=== PATIENT | female | born 1950 | race Caucasian/White ===

== ENCOUNTER 2020-10-21 08:02 | Outpatient (REF) | payer MEDICARE, SELFPAY ==
[2020-10-21 11:58] LABS: Creatinine Urine 227.57 mg/dL; Microalbum/Creatinine Ratio Ur 5.2 ug/mg cr
[2020-10-21 12:05] LABS: Alanine Aminotransferase 20 U/L (0-31); Albumin Level 4.3 g/dL (3.5-5.0); Alkaline Phosphatase 95 U/L (39-117); Anion Gap 10 (12-20); Aspartate Amino Transferase 21 U/L (5-31); Bilirubin Total 0.7 mg/dL (0.0-1.0); Blood Urea Nitrogen 17 mg/dL (9-16); Calcium 9.2 mg/dL (8.4-10.2); Carbon Dioxide 30 mmol/L (22-29); Chloride 103 mmol/L (96-108); Cholesterol 186 mg/dL; Estimated Glomerular Filt Rate 48; Glucose Fasting 94 mg/dL (60-99); HDL Cholesterol 62 mg/dL; LDL Cholesterol Calculated 100 mg/dl; Potassium 4.1 mmol/L (3.3-5.1); Sodium 139 mmol/L (135-145); Total Protein 7.1 g/dL (6.5-8.0); Triglycerides 121 mg/dL
[2020-10-21 12:18] LABS: TSH reflex Free T4 2.48 uIU/mL (0.32-4.0)
== END 2020-10-21 08:03 | disposition home or self-care (01) ==
LOC: HO.WFDLDS 08:02
PROVIDERS: Visit Provider Family Medicine
DX: Z00.00 Encounter for general adult medical examination without abnormal findings (principal); I10 Essential (primary) hypertension
CPT/HCPCS: 36415; 80053; 80061; 82043; 84443

== ENCOUNTER 2020-12-08 10:36 | Outpatient (REF) | payer MEDICARE, SELFPAY ==
--- NOTE | ~2020-12-08 | MM_ITS ---
EXAMINATION: MM SCREENING DIGITAL BREAST TOMOSYNTHESIS, BILATERAL CLINICAL INFORMATION: Screening. Asymptomatic. The lifetime risk of breast cancer based on the Tyrer-Cuzick Model is 3%. COMPARISON: Outside mammography 12/12/2018, 12/10/2018, 11/28/2017, 11/27/2016, 11/23/2015 ([facility]). TECHNIQUE: Digital breast tomosynthesis is performed in both the craniocaudal and mediolateral oblique views along with computer-aided detection (CAD). Synthesized 2D images are generated from the tomosynthesis. Additional exaggerated right CC and left MLO view are provided. FINDINGS: There are scattered areas of fibroglandular density (ACR BI-RADS breast composition Category b). Parenchymal pattern is similar to prior studies. There is no developing density or interval mass or architectural abnormality. There are scattered bilateral punctate and mildly coarse and vascular calcifications again seen. MM/MM tomosynthesis screening BI IMPRESSION: There are no significant changes from prior study. ASSESSMENT: BI-RADS 2: Benign RECOMMENDATION: Routine annual mammography screening. This patient's information was entered into a reminder system with a target due date for their next mammogram.
--- NOTE | ~2020-12-08 | MM_ITS ---
EXAMINATION: BONE DENSITOMETRY CLINICAL INDICATION: Encounter for screening for osteoporosis. COMPARISON: None (current study represents initial baseline exam). TECHNIQUE: Using a Circa DXA System (software version: 13.1) manufactured by [employer], dual-energy x-ray absorptiometry was performed of the lumbar spine and left hip. The images are of good technical quality. Summary results are attached. FINDINGS: AP SPINE L1-L4: BMD 1.517 g/cm2, Z-score 4.0, T-score 2.8, normal. LEFT FEMUR, NECK: BMD 1.050 g/cm2, Z-score 1.5, T-score 0.1, normal. LEFT FEMUR, TOTAL: BMD 1.259 g/cm2, Z-score 3.2, T-score 2.0, normal. IDENTIFIED RISK FACTORS: Early menopause, secondary osteoporosis, hysterectomy. HISTORY OF FRACTURE: None listed. MEDICATIONS: Vitamin D. MM/XR DEXA axial skeleton IMPRESSION: 1. DIAGNOSIS: Normal bone density based on the lowest T-score value of 0.1 in the femoral neck applying World Health Organization criteria. 2. 10-YEAR FRACTURE RISK PREDICTION, FRAX: Major osteoporotic fracture (clinical spine, forearm, hip or shoulder) 7.0%. Hip fracture 0.4%. 3. Treatment Recommendations: NOF guidelines recommend consideration for treatment in postmenopausal women and men age 50 and older presenting with the following: -A hip or vertebral (clinical or morphometric) fracture. -T-score less than or equal to -2.5 at the femoral neck or spine after appropriate evaluation to exclude secondary causes. -Low bone mass at the hip or spine and a 10-year fracture probability by FRAX of greater than or equal to 3% for hip fracture or greater than or equal to 20% for major osteoporotic fracture based on the [place] adapted WHO algorithm. 4. Other Recommendations: All treatment decisions require clinical judgment and consideration of individual patient factors, including patient preferences, comorbidities, previous drug use, risk factors not captured in the FRAX model (e.g. frailty, falls, vitamin D deficiency, increased bone turnover, interval significant decline in bone density) and possible under or overestimation of fracture risk by FRAX. FUTURE SCAN RECOMMENDATION: People with diagnosed cases of osteoporosis or at high risk for fracture should have regular bone mineral density tests. For patients eligible for Medicare, routine testing is allowed once every 2 years. The testing frequency can be increased to one year for patients who have rapidly progressing disease, those who are receiving or discontinuing medical therapy to restore bone mass, or have additional risk factors.
== END 2020-12-08 10:37 | disposition home or self-care (01) ==
LOC: HO.MAMMO 10:36
PROVIDERS: Visit Provider Family Medicine
DX: Z13.820 Encounter for screening for osteoporosis (principal); Z78.0 Asymptomatic menopausal state; Z12.31 Encounter for screening mammogram for malignant neoplasm of breast
CPT/HCPCS: 77063; 77067; 77080

== ENCOUNTER → 2021-03-11 10:10 | Outpatient (BNVA) | payer MEDICARE, SELFPAY | PROVIDERS: PCP Hospitalist; Referring Provider Hospitalist; Visit Provider Nurse Practitioner | DX: Z85.038 Personal history of other malignant neoplasm of large intestine (principal) | CPT/HCPCS: 99202 ==

== ENCOUNTER 2021-05-16 08:33 | Day surgery (SDC) | payer MEDICARE, SELFPAY ==
--- NOTE | 2021-05-12 14:40 | HO.ANESPROP2 ---
Documented by User: Malu Boateng NP 05/12/21 14:41 HPI - Anesthesia Eval Consult details Narrative: 71yo F for Colonoscopy PMFSH Active Problems Active Problems: All Active Problems (Updated 05/10/21 @ 14:12 by Lia Appiah, RN) High cholesterol (Acute) Vitamin D deficiency (Acute) Chronic GERD (Acute) Hypertension, essential (Acute) Osteoarthritis (arthritis due to wear and tear of joints) (Acute) Encounter for general adult medical examination without abnormal findings (Acute) Breast cancer screening by mammogram (Acute) Screening for colon cancer (Acute) Screening for osteoporosis (Acute) History of colon cancer (Acute) Past Medical History Medical History (Updated 05/10/21 @ 14:12 by Lia Appiah, RN) Colon cancer Elevated cholesterol GERD (gastroesophageal reflux disease) HTN (hypertension) Vitamin D deficiency Surgical History Surgical History (Updated 05/10/21 @ 14:21 by Lia Appiah RN) History of partial colectomy History of partial hysterectomy History of surgical amputation of finger of left hand Hx of colonoscopy Social History Social History Housing: [facility] Patient Tobacco Use Status: Former Tobacco user Tobacco use type: Cigarette e-Cigarette/Vaping Use: Never Used Use of substances other than those prescribed or required for medical reasons: No Are you DNR?: No Advance Directives: No Advance Directives Information Provided: Yes Current occupational status: retired [employer] Allergies Allergy/AdvReac Type Severity Reaction Status Date / Time No Known Allergies Allergy Verified 05/10/21 14:12 Home Medications Medication Instructions Recorded Confirmed Last Taken Type cholecalciferol (vitamin D3) 25 25 mcg PO DAILY 12/24/19 05/10/21 Unknown History mcg (1,000 unit) capsule famotidine 20 mg tablet 20 mg PO DAILY 12/24/19 05/10/21 Unknown History glucosamine sulfate 1,000 mg 1,500 mg PO DAILY cap 12/24/19 05/10/21 Unknown History capsule turmeric root extract 500 mg 1,500 mg PO DAILY cap 12/24/19 05/10/21 Unknown History capsule aspirin 81 mg tablet,delayed 81 mg PO DAILY 10/18/20 05/10/21 Unknown History release (Adult Aspirin Regimen) Exam Exam Date and Time: May 12, 2021 1440 Pertinent Lab Results Pertinent Lab Results: Laboratory Tests 10/21/20 08:10 Sodium 139 Potassium 4.1 Chloride 103 Carbon Dioxide 30 H BUN 17 H Creatinine 1.11 Assessment and Plan Assessment Anesthesia Assessment: Chart Reviewed Documented by User: Mirian Sheriff MD 05/16/21 09:43 [facility] Past Medical History Medical History (Updated 05/10/21 @ 14:12 by Lia Appiah RN) Colon cancer Elevated cholesterol GERD (gastroesophageal reflux disease) HTN (hypertension) Vitamin D deficiency Family History Family history of problems with anesthesia: No Surgical History Surgical History (Updated 05/10/21 @ 14:21 by Lia Appiah RN) History of partial colectomy History of partial hysterectomy History of surgical amputation of finger of left hand Hx of colonoscopy History of Problems with Anesthesia: No Social History [facility] History [facility] Patient Tobacco Use Status: Former Tobacco user Tobacco use type: Cigarette e-Cigarette/Vaping Use: Never Used Use of substances other than those prescribed or required for medical reasons: No Are you DNR?: No Advance Directives: No Advance Directives Information Provided: Yes Current occupational status: retired Meds Allergies Allergy/AdvReac Type Severity Reaction Status Date / Time No Known Allergies Allergy Verified 05/10/21 14:12 Home Medications Medication Instructions Recorded Confirmed Last Taken Type cholecalciferol (vitamin D3) 25 25 mcg PO DAILY 12/24/19 05/10/21 Unknown History mcg (1,000 unit) capsule famotidine 20 mg tablet 20 mg PO DAILY 12/24/19 05/10/21 Unknown History glucosamine sulfate 1,000 mg 1,500 mg PO DAILY cap 12/24/19 05/10/21 Unknown History capsule turmeric root extract 500 mg 1,500 mg PO DAILY cap 12/24/19 05/10/21 Unknown History capsule aspirin 81 mg tablet,delayed 81 mg PO DAILY 10/18/20 05/10/21 Unknown History release (Adult Aspirin Regimen) Exam Airway Mallampati Class: II TM Dist: >3cm Neck ROM: Full Partial: Lower Heart: rrr Lungs: cta Assessment and Plan Assessment Anesthesia Assessment: Anesthesia Plan Discussed and Chart Reviewed Final Anesthetic Review Family History of Problems with Anesthesia: No History of Problems with Anesthesia: No NPO: Yes ASA Class: II Final Preanesthetic Review: No Changes in Pt Med Stat, Meds/Allgs Chart Reviewed and Consent Obtained/Reviewed Patient Risk: Intermediate Procedure Risk: Intermediate Anesthetic Plan Anesthetic Plan: MAC: Disposition: Standard PACU
--- NOTE | 2021-05-16 09:17 | MHC.SHP ---
Pre-Procedural Eval Section A Date of Service: 05/16/21 The patient is an INPATIENT: No The History & Physical has been completed within 30 days and I have reviewed it.: No Section B Chief Complaint: screening Details of Present Illness: colon cancer screening, hx of colon cancer Relevant Family History (Specify if Yes): No Relevant Social History: Tobacco Use (past smoker) Present Medications: see Short Stay Collaborative assessment Medical History: Significant History (hx of colon cancer, GERD, htn, HLD, OA) History of Previous Operations: Relevant previous surgery/procedure and date(s) (History of partial colectomy History of partial hysterectomy History of surgical amputation of finger of left hand) Allergies: Allergies Allergy/AdvReac Type Severity Reaction Status Date / Time No Known Allergies Allergy Verified 05/10/21 14:12 Review of Systems Sugical H&P ROS: Negative: Constitution, Cardiovascular, Respiratory and Gastrointestinal Exam Surgical H&P Exam: Normal: Heart, Normal: Lungs, Normal: Extremities and Normal: Abdomen Plan Diagnosis/Plan: Unchanged I have reviewed the history and physical and performed a pertinent physical examination on my patient. No changes have occurred unless specified.
--- NOTE | 2021-05-16 09:19 | W.PM.OPN ---
Operative Note Operative Note Date of Service: 05/16/21 Narrative: Pre-op diagnosis: Colon cancer screening, history of colon polyps, patient is status post right hemicolectomy for colon cancer in 2011 Post-op diagnosis:?other (Multiple colon polyps, diverticulosis) Procedure: COLONOSCOPY TILL CECUM WITH SNARE POLYPECTOMY, SUBMUCOSAL INJECTION AND HEMOCLIP PLACEMENT Consent: Indications for the procedure and potential complications of bleeding, perforation, reaction to medications and missed diagnosis were discussed with the patient and informed consent was obtained. Instrument: Olympus PCF H 190 L variable stiffness pediatric colonoscope Monitoring: Vital signs and clinical assessment, intermittent blood pressure monitoring, continuous EKG monitoring, Pulse oximetry and Carbon Dioxide monitoring were done throughout the procedure. Colon withdrawl time was 40 minutes. Procedure: The patient was placed in the left lateral decubitis position and pre-procedure medications were administered. After a digital rectal examination of the ano-rectum, the video colonoscope was inserted into the rectum and advanced through the colon to the cecum. The colonoscope was slowly withdrawn in a retrograde panoramic fashion and the colon mucosa was carefully examined including a retroflexed view of the rectum. Findings and interventions are described below. Procedure Difficulty: Without difficulty Findings: Silverio-terminal Ileum: Normal Normal Anastomosis seen at 70 cms Transverse Colon:? A 2 cms elongated polyp at 65 cms just proximal to the anastomosis - raised with 2 cc of Orise solution and removed piecemeal with a hot snare.? Polypectomy site was closed with a hemoclip and marked with Mylene ink. Eight additional 1 to 2 cms sessile/flat polyps removed with a hot snare A few additional polyps in the left colon not removed due to excessive length of the procedure, Descending Colon:? Normal Sigmoid Colon:? Moderate diverticulosis Rectum:? Normal Ano-rectum:? Moderate internal hemorrhoids Colon preparation: ? Fair with undigested seeds and fibre despite copious irrigation Impression and Post Procedure Diagnosis: Colonoscopy Findings: Nine medium to large sized polyps removed A few additional polyps in the left colon not removed due to excessive length of the procedure, Moderate diverticulosis seen in the sigmoid colon Plan: Await pathology results Patient has an appointment on 06/02/21 in the GI Clinic with? Susi Ramirez NP. Pt needs genetic testing given hx of colon cancer and multiple flat polyps > 10 in the colon. Pt denies having genetic testing done in the past.? Her last colon was ? 5 yrs ago. Repeat Colonoscopy in 6 months due to fair prep and multiple polyps (recommend Miralax and Bisacodyl prep for future colonoscopies). Above findings were reviewed with the patient and colon polyps handout was given in the discharge area Surgeon: Petr Alarcon MD Anesthesia:?MAC (Dr Smith) Was an Multi Operation Machine Operator used for this Procedure?:?Yes Multi Operation Machine Operator:?Nola Blake Estimated blood loss (mL):?0 Pathology:?other (A. transverse colon polyps (several)? B. polyp at 65 cm with Orise) Condition:?stable Disposition:?PACU
[2021-05-16 09:22] VITALS: BMI 30.5
[2021-05-16 09:28] VITALS: BP 182/97; PULSE 73; RESP 17; TEMP 36.2; O2SAT 99
[2021-05-16 09:29] VITALS: BP 169/83
[2021-05-16] MEDS: Lactated Ringers 1,000 ML 100 ML IVCONT (09:39)
[2021-05-16 10:46] VITALS: BP 179/66; PULSE 73; RESP 16; TEMP 36.6; O2SAT 99
[2021-05-16 11:01] VITALS: BP 157/75; PULSE 71; RESP 16; TEMP 36.6; O2SAT 99
== END 2021-05-16 11:56 | disposition home or self-care (01) ==
PROVIDERS: PCP Hospitalist; Visit Provider Internal Medicine Gastroenterology
PROC: 0DJD8ZZ Inspection of Lower Intestinal Tract, Via Natural or Artificial Opening Endoscopic (ICD-10-PCS; CPT 45378; principal; 2021-05-16 10:00)
DX: Z12.11 Encounter for screening for malignant neoplasm of colon (principal); K63.5 Polyp of colon; K57.30 Diverticulosis of large intestine without perforation or abscess without bleeding; K64.8 Other hemorrhoids; I10 Essential (primary) hypertension; E78.5 Hyperlipidemia, unspecified; K21.9 Gastro-esophageal reflux disease without esophagitis; Z85.038 Personal history of other malignant neoplasm of large intestine; Z98.0 Intestinal bypass and anastomosis status
CPT/HCPCS: 45385; 45381; 88305

== ENCOUNTER → 2021-06-02 11:22 | Outpatient (BNVA) | payer MEDICARE, SELFPAY | PROVIDERS: PCP Hospitalist; Referring Provider Hospitalist; Visit Provider Nurse Practitioner | DX: Z85.038 Personal history of other malignant neoplasm of large intestine (principal); K63.5 Polyp of colon; Z98.890 Other specified postprocedural states | CPT/HCPCS: 99212 ==

== ENCOUNTER → 2021-09-29 08:48 | Outpatient (BNVA) | payer MEDICARE, SELFPAY | PROVIDERS: PCP Hospitalist; Visit Provider Nurse Practitioner | DX: Z01.818 Encounter for other preprocedural examination (principal); K21.9 Gastro-esophageal reflux disease without esophagitis; Z85.038 Personal history of other malignant neoplasm of large intestine; Z86.010 Personal history of colon polyps | CPT/HCPCS: 99212 ==

== ENCOUNTER 2021-10-28 07:36 | Outpatient (REF) | payer MEDICARE, SELFPAY ==
[2021-10-28 11:12] LABS: MANUAL DIFF FLAG NO
[2021-10-28 11:15] LABS: Basophils Absolute Auto 0.1 X10*3/uL (0.0-0.2); Basophils Percent Auto 0.7 % (0-2); Eosinophils Absolute Auto 0.2 X10*3/uL (0.0-0.4); Eosinophils Percent Auto 2.3 % (0-4); Hematocrit 45.4 % (37.0-47.0); Hemoglobin 14.7 g/dl (12.0-16.0); Imm Gran Abs Auto 0.02 X10*3/uL (0.00-0.03); Imm Gran Pct Auto 0.3 % (0.0-0.4); Lymphocytes Absolute Auto 2.3 X10*3/uL (1.2-4.9); Lymphocytes Percent Auto 33.6 % (20-40); Mean Corpuscular HGB Conc 32.4 g/dl (31.0-35.0); Mean Corpuscular Hemoglobin 30.7 pg (27.0-33.0); Mean Corpuscular Volume 94.8 fL (80.0-98.0); Mean Platelet Volume 10.2 fL (9.4-12.3); Monocytes Absolute Auto 0.7 X10*3/uL (0.1-1.2); Neutrophils Absolute Auto 3.7 x10*3/uL (2.0-8.3); Neutrophils Percent Auto 53.1 % (45-73); Platelet Count 249 X10*3/uL (160-400); Red Blood Count 4.79 X10*6/uL (4.20-5.50); Red Cell Distribution Width 12.5 % (11.0-16.0); White Blood Count 6.9 X10*3/uL (4.8-10.8)
[2021-10-28 11:27] LABS: Alanine Aminotransferase 29 U/L (0-31); Albumin Level 4.4 g/dL (3.5-5.0); Alkaline Phosphatase 102 U/L (39-117); Anion Gap 15 (12-20); Aspartate Amino Transferase 27 U/L (5-31); Bilirubin Total 0.5 mg/dL (0.0-1.0); Blood Urea Nitrogen 20 mg/dL (9-16); Calcium 9.4 mg/dL (8.4-10.2); Carbon Dioxide 27 mmol/L (22-29); Chloride 102 mmol/L (96-108); Estimated Glomerular Filt Rate 48; Glucose Random 93 mg/dL (60-115); Potassium 4.4 mmol/L (3.3-5.1); Sodium 140 mmol/L (135-145); Total Protein 7.3 g/dL (6.5-8.0)
== END 2021-10-28 07:37 | disposition home or self-care (01) ==
LOC: HO.WFDLDS 07:36
PROVIDERS: Visit Provider Nurse Practitioner
DX: D12.6 Benign neoplasm of colon, unspecified (principal)
CPT/HCPCS: 36415; 80053; 85025

== ENCOUNTER 2021-12-09 11:31 | Outpatient (REF) | payer MEDICARE, SELFPAY ==
--- NOTE | ~2021-12-09 | MM_ITS ---
EXAMINATION: MM SCREENING DIGITAL BREAST TOMOSYNTHESIS, BILATERAL CLINICAL INFORMATION: Screening. Asymptomatic. Family history breast cancer, sister. COMPARISON: Mammography: 12/08/2020; outside mammography 12/10/2018, 11/28/2017 ([facility], [place]). TECHNIQUE: Digital breast tomosynthesis is performed in both the craniocaudal and mediolateral oblique views along with computer-aided detection (CAD). Synthesized 2D images are generated from the tomosynthesis. FINDINGS: There are scattered areas of fibroglandular density (ACR BI-RADS breast composition Category b). There are no significant masses, abnormal calcifications, or other abnormalities. Parenchymal pattern is similar to prior studies. There is no developing density or architectural abnormality. The axilla and skin contours are unremarkable. No significant changes. MM/MM tomosynthesis screening BI IMPRESSION: No mammographic evidence of malignancy. ASSESSMENT: BI-RADS 1: Negative RECOMMENDATION: Routine annual mammography screening. This patient's information was entered into a reminder system with a target due date for their next mammogram.
== END 2021-12-09 11:32 | disposition home or self-care (01) ==
LOC: HO.MAMMO 11:31
PROVIDERS: PCP Hospitalist; Visit Provider Hospitalist
DX: Z12.31 Encounter for screening mammogram for malignant neoplasm of breast (principal)
CPT/HCPCS: 77063; 77067

== ENCOUNTER 2022-03-06 08:12 | Day surgery (SDC) | payer MEDICARE, SELFPAY ==
[2022-02-27 15:25] VITALS: BMI 30.9
--- NOTE | 2022-03-03 11:53 | P.CONAN_ITS ---
Documented by User: Malu Boateng NP 03/03/22 11:55 HPI - Anesthesia Eval Consult details Narrative: 72yo F for Colonoscopy s/p [place] 05/2021 with MAC PMFSH Active Problems Active Problems: All Active Problems (Updated 11/10/21 @ 08:37 by Natalia Aquino NP) Facial lesion (Acute) Normal physical exam (Acute) Serrated polyposis syndrome (Acute) High cholesterol (Acute) Vitamin D deficiency (Acute) Chronic GERD (Acute) Hypertension, essential (Acute) Osteoarthritis (arthritis due to wear and tear of joints) (Acute) Encounter for general adult medical examination without abnormal findings (Acute) Breast cancer screening by mammogram (Acute) Screening for colon cancer (Acute) Screening for osteoporosis (Acute) History of colon cancer (Acute) Past Medical History Medical History Colon cancer Elevated cholesterol GERD (gastroesophageal reflux disease) HTN (hypertension) Multiple polyps of sigmoid colon Vitamin D deficiency Family History Family history of problems with anesthesia: No Surgical History Surgical History History of partial colectomy History of partial hysterectomy History of surgical amputation of finger of left hand Hx of colonoscopy History of Problems with Anesthesia: No Social History [facility] Are you a primary career discovery teacher to a significant other at home: No Do you presently have visiting nurse or other home services: No Patient Tobacco Use Status: Former Tobacco user Quit Date: Tobacco use type: Cigarette e-Cigarette/Vaping Use: Never Used Use of substances other than those prescribed or required for medical reasons: No Have you been hit, kicked, punched, or otherwise hurt by someone within the past year? If so, by whom?: No Are you DNR?: No Advance Directives: No (will bring dos) Advance Directives Information Provided: Yes Advance Directives on File: No Recently lost weight without trying: No Nutrition Risks: No Nutritional Risk Poor oral hygiene: No (partial lower) Current occupational status: retired Meds Allergies Allergy/AdvReac Type Severity Reaction Status Date / Time No Known Allergies Allergy Verified 02/27/22 15:28 Home Medications Medication Instructions Recorded Confirmed Last Taken Type famotidine 20 mg tablet 20 mg PO DAILY PRN Acid Reflux 12/24/19 02/27/22 03/01/22 History glucosamine sulfate 1,000 mg 1,500 mg PO DAILY 12/24/19 02/27/22 03/01/22 History capsule turmeric root extract 500 mg 1,500 mg PO DAILY 12/24/19 03/06/22 03/01/22 History capsule aspirin 81 mg tablet,delayed 81 mg PO DAILY 11/10/21 02/27/22 03/01/22 History release (Adult Aspirin Regimen) Exam Exam Date and Time: March 03, 2022 1153 Height,Weight and Vital Signs: Height 5 ft 4 in Weight 81.647 kg Pertinent Lab Results Pertinent Lab Results: Laboratory Tests 10/28/21 10/28/21 07:45 07:45 WBC 6.9 Hgb 14.7 Hct 45.4 Plt Count 249 Sodium 140 Potassium 4.4 Chloride 102 Carbon Dioxide 27 BUN 20 H Creatinine 1.12 Assessment and Plan Assessment Anesthesia Assessment: Chart Reviewed Final Anesthetic Review Family History of Problems with Anesthesia: No History of Problems with Anesthesia: No Documented by User: Dara Norwood MD 03/06/22 09:04 HPI - Anesthesia Eval Consult details Narrative: 72yo F for Colonoscopy history of colon cancer s/post resection s/p [place] 05/2021 with MAC per pt report last colonoscopy not complete due to inadequate prep PMFSH Past Medical History Medical History Colon cancer Elevated cholesterol GERD (gastroesophageal reflux disease) HTN (hypertension) Multiple polyps of sigmoid colon Vitamin D deficiency Surgical History Surgical History History of partial colectomy History of partial hysterectomy History of surgical amputation of finger of left hand Hx of colonoscopy Social History Social History (Reviewed 09/29/21 @ 08:59 by CHATO Willett [facility] Are you a primary career discovery teacher to a significant other at home: No Do you presently have visiting nurse or other home services: No Patient Tobacco Use Status: Former Tobacco user Quit Date: Tobacco use type: Cigarette e-Cigarette/Vaping Use: Never Used Use of substances other than those prescribed or required for medical reasons: No Have you been hit, kicked, punched, or otherwise hurt by someone within the past year? If so, by whom?: No Are you DNR?: No Advance Directives: No (will bring dos) Advance Directives Information Provided: Yes Advance Directives on File: No Recently lost weight without trying: No Nutrition Risks: No Nutritional Risk Poor oral hygiene: No (partial lower) Current occupational status: retired [employer] Allergies Allergy/AdvReac Type Severity Reaction Status Date / Time No Known Allergies Allergy Verified 02/27/22 15:28 Home Medications Medication Instructions Recorded Confirmed Last Taken Type famotidine 20 mg tablet 20 mg PO DAILY PRN Acid Reflux 12/24/19 02/27/22 03/01/22 History glucosamine sulfate 1,000 mg 1,500 mg PO DAILY 12/24/19 02/27/22 03/01/22 History capsule turmeric root extract 500 mg 1,500 mg PO DAILY 12/24/19 03/06/22 03/01/22 History capsule aspirin 81 mg tablet,delayed 81 mg PO DAILY 11/10/21 02/27/22 03/01/22 History release (Adult Aspirin Regimen) Exam Airway Mallampati Class: II TM Dist: >3cm Neck ROM: Full Heart: rrr Lungs: cta Assessment and Plan Assessment Anesthesia Assessment: Anesthesia Plan Discussed Final Anesthetic Review NPO: Yes ASA Class: III Final Preanesthetic Review: No Changes in Pt Med Stat, Meds/Allgs Chart Reviewed, Consent Obtained/Reviewed and Anes Risks/Benef Reviewed Patient Risk: Low Procedure Risk: Low Anesthetic Plan Anesthetic Plan: MAC: and Agree w/ Assess. and Plan Disposition: Standard PACU
--- NOTE | 2022-03-06 07:56 | MHC.SHP ---
Pre-Procedural Eval Section A Date of Service: 03/06/22 The patient is an INPATIENT: No The History & Physical has been completed within 30 days and I have reviewed it.: No Section B Chief Complaint: screening, hx of colon ca and familial polyposis Details of Present Illness: Screening, personal history of colon cancer Relevant Social History: Tobacco Use (former smoker) Present Medications: see Short Stay Collaborative assessment Medical History: Significant History (Colon cancer Elevated cholesterol GERD (gastroesophageal reflux disease) HTN (hypertension) Multiple polyps of sigmoid colon Vitamin D deficiency) History of Previous Operations: Relevant previous surgery/procedure and date(s) (History of partial colectomy History of partial hysterectomy History of surgical amputation of finger of left hand Hx of colonoscopy) Allergies: Allergies Allergy/AdvReac Type Severity Reaction Status Date / Time No Known Allergies Allergy Verified 02/27/22 15:28 Review of Systems Sugical H&P ROS: Negative: Constitution, Cardiovascular, Respiratory and Gastrointestinal Exam Surgical H&P Exam: Normal: Heart, Normal: Lungs, Normal: Extremities and Normal: Abdomen Plan Diagnosis/Plan: Unchanged I have reviewed the history and physical and performed a pertinent physical examination on my patient. No changes have occurred unless specified. Time Spent With Patient Time: Total time managing care of this patient today ____ minutes.
[2022-03-06 08:35] VITALS: BP 171/83; PULSE 77; RESP 20; TEMP 36.6; O2SAT 97
--- NOTE | 2022-03-06 08:42 | P.BOP_ITS ---
Brief Operative Note Date of Service: 03/06/22 Pre-op diagnosis: Colon cancer screening, serrated polyposis syndrome, history of multiple colon polyps Post-op diagnosis: other (Colon polyps, diverticulosis, hemorrhoids) Procedure: COLONOSCOPY TO ANASTOMOSIS WITH SNARE POLYPECTOMY, SUBMUCOSAL INJECTION AND HEMOCLIP PLACEMENT Surgeon: Petr Alarcon MD Anesthesia: MAC Was an Credit Portfolio Manager used for this Procedure?: Yes Credit Portfolio Manager: Nola Blake Estimated blood loss (mL): 0 Pathology: other (A. descending colon polyps @ 50 cms with Eleview (2) B. polyp @ 65 cms C. transverse colon polyp with [place] D. nodule transverse colon bxs @ 80 cms, R/O lipoma E. descending colon polyp @ 65 cms wit) Condition: stable Disposition: PACU
--- NOTE | 2022-03-06 08:42 | W.PM.OPN ---
Operative Note Operative Note Date of Service: 03/06/22 Narrative: Pre-op diagnosis: Colon cancer screening, serrated polyposis syndrome, history of multiple colon polyps Post-op diagnosis:?other (Colon polyps, diverticulosis, hemorrhoids) Surgeon: Petr Alarcon MD Anesthesia:?MAC COLONOSCOPY TILL CECUM WITH SNARE POLYPECTOMY, SUBMUCOSAL INJECTION AND HEMOCLIP PLACEMENT Consent: Indications for the procedure and potential complications of bleeding, perforation, reaction to medications and missed diagnosis were discussed with the patient and informed consent was obtained. Instrument: Olympus PCF H 190 L variable stiffness pediatric colonoscope Monitoring: Vital signs and clinical assessment, intermittent blood pressure monitoring, continuous EKG monitoring, Pulse oximetry and Carbon Dioxide monitoring were done throughout the procedure. Colon withdrawl time was 49 minutes. Procedure: The patient was placed in the left lateral decubitis position and pre-procedure medications were administered. After a digital rectal examination of the ano-rectum, the video colonoscope was inserted into the rectum and advanced through the colon to the ileo-colic anastomosis at 70 cms. The colonoscope was slowly withdrawn in a retrograde panoramic fashion and the colon mucosa was carefully examined including a retroflexed view of the rectum. Findings and interventions are described below. Procedure Difficulty: Without difficulty Findings: Transverse Colon: A 10 - 12 mm polyp at polypectomy site at 65 cms - removed with a hot snare. A 2 cms flat polyp at 80 cms raised with 5 cc of Eleview and removed with a hot snare. A 5 cms smooth yellowish benign appearing nodule at 80 cms - biopsied. Descending Colon: A 2.5 cms flat polyp at 65 cms raised with 5 cc of Eleview and removed piece meal with a hot snare. Polypectomy sites was closed with hemoclips x2 and marked with Mylene ink. Two 2 to 2.5 cms flat polyp at 50 cms raised with 3 cc of normal saline and removed with a hot snare. Sigmoid Colon: A 3 cms flat polyp at 40 cms raised with 5 cc of Eleview and removed piecemeal with a hot snare. Polypectomy site was closed with the hemoclips x2 and marked with Mylene ink. A 12 to 15 mm sessile polyp at 20 cms - removed with a hot snare. Moderate diverticulosis Rectum: Normal Ano-rectum: Moderate internal hemorrhoids Colon preparation: Good after some irrigation Impression and Post Procedure Diagnosis: Colonoscopy Findings: Seven medium to large sized polyps removed A 5 cms smooth yellowish benign appearing nodule at 80 cms (likely a submucosal lipoma) - biopsied. Moderate diverticulosis seen in the left colon Moderate hemorrhoids on retroflexed exam. Plan: Await pathology results Patient has an appointment on 03/21/22 in the GI [facility] with Susi Ramirez NP. Repeat Colonoscopy interval based on path results - in 6 to 12 months. Since pt has multiple flat polyps, option of surgical evaluation for a sub-total colectomy (followed by surveillance of rectal stump by a flex sigmoidoscopy) was discussed with the patient. She will think it over and inform Susi Ramirez NP of her decision when she returns for her FU appt. Above findings were reviewed with the patient and colon polyps handout was given in the discharge area
[2022-03-06] MEDS: Lactated Ringers 1,000 ML 100 ML IVCONT (08:52)
[2022-03-06 11:06] VITALS: BP 124/64; PULSE 79; RESP 16; TEMP 36.8; O2SAT 94
[2022-03-06 11:21] VITALS: BP 168/99; PULSE 70; RESP 16; TEMP 36.9; O2SAT 96
== END 2022-03-06 12:12 ==
LOC: HO.SSS 08:13
PROVIDERS: PCP Hospitalist; Visit Provider Internal Medicine Gastroenterology
PROC: 0DJD8ZZ Inspection of Lower Intestinal Tract, Via Natural or Artificial Opening Endoscopic (ICD-10-PCS; CPT 45378; principal; 2022-03-06 08:30)
DX: Z12.11 Encounter for screening for malignant neoplasm of colon (principal); D12.6 Benign neoplasm of colon, unspecified; K57.30 Diverticulosis of large intestine without perforation or abscess without bleeding; K64.8 Other hemorrhoids
CPT/HCPCS: 45385; 45381; 88305

== ENCOUNTER → 2022-03-29 08:46 | Outpatient (BNVA) | payer MEDICARE, SELFPAY | PROVIDERS: PCP Hospitalist; Visit Provider Nurse Practitioner | DX: D12.3 Benign neoplasm of transverse colon (principal); D12.4 Benign neoplasm of descending colon; D12.5 Benign neoplasm of sigmoid colon; Z98.890 Other specified postprocedural states | CPT/HCPCS: 99212 ==

== ENCOUNTER 2022-04-03 08:07 | Outpatient (REF) | payer MEDICARE, SELFPAY ==
[2022-04-03 12:29] LABS: Anion Gap 11 (12-20); Blood Urea Nitrogen 14 mg/dL (9-16); Carbon Dioxide 29 mmol/L (22-29); Chloride 105 mmol/L (96-108); Cholesterol 169 mg/dL; Estimated Glomerular Filt Rate 55; Glucose Fasting 85 mg/dL (60-99); HDL Cholesterol 63 mg/dL; LDL Cholesterol Calculated 90 mg/dl; Potassium 4.1 mmol/L (3.3-5.1); Sodium 141 mmol/L (135-145); Triglycerides 84 mg/dL
== END 2022-04-03 08:08 | disposition home or self-care (01) ==
LOC: HO.WFDLDS 08:07
PROVIDERS: Visit Provider Hospitalist
DX: R94.4 Abnormal results of kidney function studies (principal); E78.00 Pure hypercholesterolemia, unspecified
CPT/HCPCS: 36415; 80048; 80061

== ENCOUNTER 2022-08-14 06:21 | Day surgery (SDC) | payer MEDICARE, SELFPAY ==
--- NOTE | 2022-08-11 12:10 | HO.ANESPROP2 ---
HPI - Anesthesia Eval Consult details Narrative: 72yo F for Colonoscopy PMFSH Active Problems Active Problems: All Active Problems (Updated 03/28/22 @ 08:49 by Natalia Aquino NP) Decreased GFR (Acute) Facial lesion (Acute) Normal physical exam (Acute) Serrated polyposis syndrome (Acute) High cholesterol (Acute) Vitamin D deficiency (Acute) Chronic GERD (Acute) Hypertension, essential (Acute) Osteoarthritis (arthritis due to wear and tear of joints) (Acute) Encounter for general adult medical examination without abnormal findings (Acute) Breast cancer screening by mammogram (Acute) Screening for colon cancer (Acute) Screening for osteoporosis (Acute) History of colon cancer (Acute) Past Medical History Medical History Colon cancer Elevated cholesterol GERD (gastroesophageal reflux disease) HTN (hypertension) Multiple polyps of sigmoid colon Vitamin D deficiency Family History Family history of problems with anesthesia: No Surgical History Surgical History History of partial colectomy History of partial hysterectomy History of surgical amputation of finger of left hand Hx of colonoscopy History of Problems with Anesthesia: No Social History [facility] Are you a primary rn patient care to a significant other at home: No Do you presently have visiting nurse or other home services: No Patient Tobacco Use Status: Former Tobacco user Quit Date: Tobacco use type: Cigarette e-Cigarette/Vaping Use: Never Used Current occupational status: retired [employer] Allergies Allergy/AdvReac Type Severity Reaction Status Date / Time No Known Allergies Allergy Verified 03/29/22 09:03 Home Medications Medication Instructions Recorded Confirmed Last Taken Type famotidine 20 mg tablet 20 mg PO DAILY PRN Acid Reflux 12/24/19 02/27/22 03/01/22 History glucosamine sulfate 1,000 mg 1,500 mg PO DAILY 12/24/19 02/27/22 03/01/22 History capsule turmeric root extract 500 mg 1,500 mg PO DAILY 12/24/19 03/06/22 03/01/22 History capsule aspirin 81 mg tablet,delayed 81 mg PO DAILY 11/10/21 02/27/22 03/01/22 History release (Adult Aspirin Regimen) Exam Exam Date and Time: August 11, 2022 1210 Pertinent Lab Results Pertinent Lab Results: Laboratory Tests 10/28/21 04/03/22 07:45 08:10 WBC 6.9 Hgb 14.7 Hct 45.4 Plt Count 249 Sodium 141 Potassium 4.1 Chloride 105 Carbon Dioxide 29 BUN 14 Creatinine 0.98 Assessment and Plan Assessment Anesthesia Assessment: Chart Reviewed Final Anesthetic Review Family History of Problems with Anesthesia: No History of Problems with Anesthesia: No
[2022-08-14 06:51] VITALS: BMI 30.6
[2022-08-14 06:57] VITALS: BP 155/74; PULSE 74; RESP 15; TEMP 36.2; O2SAT 97
--- NOTE | 2022-08-14 07:42 | MHC.SHP ---
Pre-Procedural Eval Section A Date of Service: 08/14/22 The patient is an INPATIENT: No The History & Physical has been completed within 30 days and I have reviewed it.: No Section B Chief Complaint: Benign neoplasm of colon, Relevant Family History (Specify if Yes): No Relevant Social History: Tobacco Use (Former smoker) Present Medications: see Short Stay Collaborative assessment Medical History: Significant History (Colon cancer Elevated cholesterol GERD (gastroesophageal reflux disease) HTN (hypertension) Multiple polyps of sigmoid colon) History of Previous Operations: Relevant previous surgery/procedure and date(s) (History of partial colectomy History of partial hysterectomy History of surgical amputation of finger of left hand Hx of colonoscopy) Allergies: Allergies Allergy/AdvReac Type Severity Reaction Status Date / Time No Known Allergies Allergy Verified 08/14/22 06:50 Review of Systems Sugical H&P ROS: Negative: Constitution, Cardiovascular, Respiratory and Gastrointestinal Exam Surgical H&P Exam: Normal: Heart, Normal: Lungs, Normal: Extremities and Normal: Abdomen Plan Diagnosis/Plan: Unchanged I have reviewed the history and physical and performed a pertinent physical examination on my patient. No changes have occurred unless specified. Time Spent With Patient Time: Total time managing care of this patient today ____ minutes.
--- NOTE | 2022-08-14 08:35 | W.PM.OPN ---
Operative Note Operative Note Date of Service: 08/14/22 Narrative: COLONOSCOPY TILL ILEO-COLIC ANASTOMOSIS WITH SNARE POLYPECTOMY, SUBMUCOSAL INJECTION AND HEMOCLIP PLACEMENT Pre-op diagnosis: Colon cancer screening, follow-up of multiple colon polyps Post-op diagnosis:? Colon polyps, diverticulosis, hemorrhoids Endoscopist:? Petr Alarcon MD Anesthesia:?MAC Consent: Indications for the procedure and potential complications of bleeding, perforation, reaction to medications and missed diagnosis were discussed with the patient and informed consent was obtained. Instrument: Olympus PCF H 190 L variable stiffness pediatric colonoscope Monitoring: Vital signs and clinical assessment, intermittent blood pressure monitoring, continuous EKG monitoring, Pulse oximetry and Carbon Dioxide monitoring were done throughout the procedure. Please see anesthesia flowsheet. Colon withdrawl time was 35 minutes. Procedure: The patient was placed in the left lateral decubitis position and pre-procedure medications were administered. After a digital rectal examination of the ano-rectum, the video colonoscope was inserted into the rectum and advanced through the colon to ileo-colic anastomosis at 80 cms. The colonoscope was slowly withdrawn in a retrograde panoramic fashion and the colon mucosa was carefully examined including a retroflexed view of the rectum. Findings and interventions are described below. Procedure Difficulty: Without difficulty Findings: Terminal Ileum: Silverio-terminal ileum was normal Ileo-colic anastomosis: Two 1.8 to 2 cms flat polyps near anastomotic site. Polyps were raised with 5 cc of normal saline and removed with hot snare. The larger polypectomy site was closed with 2 hemoclips. Transverse Colon: A 5 cms smooth yellowish benign appearing nodule at 80 cms - submucosal lipoma on biopsies obtained during last colonoscopy. A 15 mm sessile polyp removed with a hot snare Descending Colon: Two 3-4 mm benign appearing nodules at biopsy site at 65 cms - removed with a cold biopsy Sigmoid Colon: A 10-12 mm sessile polyp -removed with a hot snare. Moderate diverticulosis Rectum: Two 4-5 mm diminutive appearing polyps - removed with a cold biopsy Ano-rectum: Moderate internal hemorrhoids Colon preparation: Good after some irrigation Impression and Post Procedure Diagnosis: Colonoscopy Findings: Six medium sized polyps removed Two 3-4 mm benign appearing nodules at biopsy site at 65 cms - removed with a cold biopsy Moderate diverticulosis seen in the sigmoid colon Moderate hemorrhoids on retroflexed exam. Plan: Await pathology results Patient to schedule a FU appointment with Susi Ramirez NP. Repeat Colonoscopy interval based on path results - in 6 to 12 months if polyps are adenomatous and due to a history of serrated polypoosis syndrome. (pt is still undecided regarding colon surgery) Above findings were reviewed with the patient and colon polyps handout was given in the discharge area BIOPSIES SHOWED: A.? Colon, at anastomosis at 70 cm, 2 polyps:? Sessile serrated lesion/polyp without dysplasia, and hyperplastic polyp. B.? Colon, transverse, polyp:? Consistent with hyperplastic polyp. C.? Colon, polypectomy site at 45 cm, biopsy:? Colonic mucosa with minor crypt distortion; negative for adenomatous dysplasia. D.? Colon, sigmoid, polyp:? Tubular adenoma; negative for high-grade dysplasia and carcinoma.? E.? Colon, rectal polyp:? Polypoid colonic mucosa with minimal hyperplastic changes; negative for adenomatous dysplasia.?
== END 2022-08-14 10:31 | disposition home or self-care (01) ==
LOC: HO.SSS 06:22
PROVIDERS: PCP Hospitalist; Visit Provider Internal Medicine Gastroenterology
PROC: 0DJD8ZZ Inspection of Lower Intestinal Tract, Via Natural or Artificial Opening Endoscopic (ICD-10-PCS; CPT 45378; principal; 2022-08-14 08:30)
DX: Z12.11 Encounter for screening for malignant neoplasm of colon (principal); Z86.010 Personal history of colon polyps; Z85.038 Personal history of other malignant neoplasm of large intestine; D12.4 Benign neoplasm of descending colon; D12.5 Benign neoplasm of sigmoid colon; K63.5 Polyp of colon; K62.1 Rectal polyp; K57.30 Diverticulosis of large intestine without perforation or abscess without bleeding; K64.8 Other hemorrhoids; Z90.49 Acquired absence of other specified parts of digestive tract; K21.9 Gastro-esophageal reflux disease without esophagitis; I10 Essential (primary) hypertension; E78.00 Pure hypercholesterolemia, unspecified; E55.9 Vitamin D deficiency, unspecified; Z79.82 Long term (current) use of aspirin; Z79.899 Other long term (current) drug therapy; Z87.891 Personal history of nicotine dependence
CPT/HCPCS: 45385; 45380; 45381; 88305

== ENCOUNTER → 2022-08-14 06:21 | Outpatient (BNV) | payer MEDICARE, SELFPAY | PROVIDERS: PCP Hospitalist; Visit Provider Internal Medicine Gastroenterology | DX: Z12.11 Encounter for screening for malignant neoplasm of colon (principal); K57.30 Diverticulosis of large intestine without perforation or abscess without bleeding; K64.8 Other hemorrhoids; D12.6 Benign neoplasm of colon, unspecified; D12.3 Benign neoplasm of transverse colon; D12.4 Benign neoplasm of descending colon; D12.5 Benign neoplasm of sigmoid colon; D12.8 Benign neoplasm of rectum | CPT/HCPCS: 45380; 45381; 45385 ==

== ENCOUNTER 2022-11-06 08:44 | Outpatient (AMB) | payer MEDICARE, SELFPAY ==
--- NOTE | 2022-11-06 08:58 | A.OFFPC_ITS ---
Vital Signs 11/06/22 08:59 Height 5 ft 4 in Weight 180 lb 2 oz BMI 30.9 BP 138/82 Blood Pressure Location Lt brachial Position Sitting Pulse 69 Pulse Source Pulse Oximeter Pulse Oximetry (%) 99 Oxygen Delivery Method Room Air Intake Visit Reasons: Annual Physical Intake Note: Patient is here for her physical. Allergies No Known Allergies Allergy (Verified 11/06/22 09:01) Tobacco use date assessed: 11/06/22 Fall risk assessment: No Falls in past year Last assessed Fall Risk: 11/06/22 Dental Screening Dental Screen Date: 11/06/22 Did you have a dental visit in the last 12 months?: No Did you have a dental problem in the last 6 months where you did not have access to dental care?: No Was dental information given to patient?: Patient declined HPI Annual Physical HPI Details 72 y/o female presents for a CPE with f/ u labs and health maintenance. Labs were drawn 04/03/22. Triglycerides 84. TC 169. LDL 90. HDL 63. Due for a mammogram. Last mammogram 12/09/21 was negative. Last bone density test 2020 was normal. BP today 138/82. She is on losartan 100mg and hydrochlorothiazide 25mg daily. COUNTS INCLUDE [facility] BEDS AT THE [facility] Medical History Multiple polyps of sigmoid colon Vitamin D deficiency GERD (gastroesophageal reflux disease) Elevated cholesterol HTN (hypertension) Colon cancer Surgical History Hx of colonoscopy History of partial colectomy History of surgical amputation of finger of left hand History of partial hysterectomy Social History [facility] Are you a primary rn managed care to a significant other at home: No Do you presently have visiting nurse or other home services: No Patient Tobacco Use Status: Former Tobacco user Quit Date: 40 yrs ago Tobacco use type: Cigarette e-Cigarette/Vaping Use: Never Used service: No Current occupational status: retired Cognitive needs: No Hearing needs: No Vision needs: No Questionnaire PHQ-9 Over the last 2 weeks, how often have you been bothered by any of the following problems? 1. Little interest or pleasure in doing things: not at all 2. Feeling down, depressed, or hopeless: not at all 3. Trouble falling or staying asleep, or sleeping too much: not at all 4. Feeling tired or having little energy: not at all 5. Poor appetite or overeating: not at all 6. Feeling bad about yourself - or that you are a failure or have let yourself or your family down: not at all 7. Trouble concentrating on things, such as reading the newspaper or watching television: not at all 8. Moving or speaking so slowly that other people could have noticed. Or the opposite - being so fidgety or restless that you have been moving around a lot more than usual: not at all 9. Thoughts that you would be better off or of hurting yourself in some way: not at all Total score: 0 Source: Developed by Drs. Janes Rutherford, Cristina Bender, Anirudh Lam and colleagues, with an educational julio from [employer]. Thrive Questionnaire Date Thrive assessed: 01/17/21 MAYE-7 AMB Questionnaire MAYE-7 Date MAYE - 7 assessed: 11/06/22 Feeling nervous, anxious, or on edge: 0 = Not at all Not being able to stop or control worryin = Not at all Worrying too much about different things: 0 = Not at all Trouble relaxin = Not at all Being so restless that it is hard to sit still: 0 = Not at all Becoming easily annoyed or irritable: 0 = Not at all Feeling afraid as if something awful might happen: 0 = Not at all Total MAYE-7 score (0-4 normal; 5-9 mild; 10-14 moderate; 15-21 severe): 0 Source: Developed by Drs. Janes Rutherford, Cristina Bender, Anirudh Lam and colleagues, with an educational julio from [employer]. Review of Systems Const Denies chills, Denies fatigue, Denies fever(s), Denies headache(s) and Denies weakness Eyes Denies change in vision ENT Denies dizziness, Denies headache(s), Denies hearing loss, Denies nasal congestion, Denies sinus pain, Denies sinus pressure and Denies sore throat Card Denies chest pain, Denies lightheadedness, Denies dyspnea and Denies other (palpitations) Resp Denies cough, Denies dyspnea and Denies wheezing GI Denies abdominal pain, Denies melena, Denies hematochezia, Denies change in bowel habits, Denies dyspepsia and Denies nausea Denies hematuria and Denies dysuria Musc Denies abnormal gait, Denies myalgias, Denies arthralgias, Denies numbness and Denies tingling Skin/Breast Denies rash, Denies unusual bruising and Denies wounds Neuro Denies abnormal gait, Denies dizziness, Denies headache(s), Denies memory loss, Denies numbness, Denies Sensory deficit (Neuro), Denies tingling and Denies weakness Psych Denies anxiety, Denies depression and Denies memory loss Endo Denies cold intolerance, Denies fatigue, Denies heat intolerance, Denies polydipsia and Denies polyuria Paresh/Lymph Denies easy bleeding and Denies easy bruising Aller/Immun Denies wheezing Physical exam (Primary Care) Vital Signs: Last Vital Signs Pulse 69 11/06/22 08:59 BP 138/82 11/06/22 08:59 Pulse Ox 99 11/06/22 08:59 Oxygen Delivery Method Room Air 11/06/22 08:59 BMI result Body Mass Index 30.9 Tobacco/Smoking Status: Tobacco use Status Tobacco use date assessed 11/06/22 11/06/22 09:04 Patient Tobacco Use Status Former Tobacco user 11/06/22 08:58 Tobacco use type Cigarette 11/06/22 08:58 e-Cigarette/Vaping Use Never Used 11/06/22 08:58 PHQ-9: PHQ-9 Score PHQ-9: Total score 0 11/06/22 09:34 Thrive Assessment: Date of Thrive Assessment Date Thrive assessed 01/17/21 11/06/22 08:58 Const General: no acute distress, well developed, alert and awake Nutritional Appearance: well nourished Orientation/consciousness: patient oriented x3 HENMT Head: Yes normocephalic and Yes atraumatic Ears: hearing grossly normal bilaterally and TM's normal bilaterally General nose exam: Normal external nose present and Normal nares present Mouth: Normal oral and palatal mucosa present and moist mucous membranes Teeth and gingiva: dentition normal Throat: Yes posterior oropharynx normal Eyes General: appearance normal, both eyes and all related structures Pupils: Equal, round and reactive pupils present and Pupil accommodation reflex normal EOM: EOMs intact bilaterally Neck Neck: Yes normal visual inspection, Yes no lymphadenopathy and Yes trachea midline Thyroid: Thyroid normal Carotids: no bruits Lymphatic: no lymphadenopathy noted Chest Chest palpation & inspection: normal inspection of the chest Resp Effort & Inspection: normal respiratory effort Auscultation: clear to auscultation bilaterally Cardio Rate: regular rate Rhythm: regular rhythm Heart sounds: S1 normal heart sound present, S2 normal heart sound present, no gallops, no murmurs and no rubs Bruits: no abdominal aortic bruits and no carotid bruits GI Palpation (GI): No Abdominal aortic bruit present, Soft to palpation, nontender, No hepatosplenomegaly present and No Rebound tenderness present Auscultation: normal bowel sounds General: Yes no CVA tenderness Back/Spine/Pelvis Back: no CVA tenderness Cervical Spine: cervical ROM normal and No Cervical spine tenderness Thoracic/Lumbar Spine: thoraco-lumbar ROM normal, No pain with thoraco-lumbar ROM, No thoracic spinal tenderness and No lumbar spinal tenderness Skin Lesions: no lesions Rashes: no rashes Trauma: no lacerations or abrasions Wounds: no wounds Nails: normal Neuro General: patient oriented x3 Cranial nerves: Yes Equal, round and reactive pupils present Cognition (Neuro): normal cognition Gait exam (Neuro): Normal gait present Motor exam (neuro): 5/5 motor strength present throughout Sensory Exam: No Sensory deficit (Neuro) Deep tendon reflexes (DTR's): Right patellar reflex intensity grade: 2+ and Left patellar reflex intensity grade: 2+ Extrem General: Yes normal to inspection and No edema Psych Appearance: grossly normal Affect: normal affect Attitude: cooperative Thought process: Normal thought process present Assessment and Plan Assessment & Plan (1) Adult general medical exam: Code(s): Z00.00 - Encounter for general adult medical examination without abnormal findings Plan: 72-year-old?female?presents?for?complete?physical Encouraged?healthy?diet?with?active?lifestyle?and?plenty?of?exercise (2) Hypertension, essential: Code(s): I10 - Essential (primary) hypertension Plan: Blood?pressure?is?controlled?on?losartan?and?hydrochlorothiazide.??Goal?is?less? than?140/90 Continue?current?regimen Follow?GFR (3) High cholesterol: Code(s): E78.00 - Pure hypercholesterolemia, unspecified Plan: She?is?on?atorvastatin Check?lipids (4) Breast cancer screening by mammogram: Code(s): Z12.31 - Encounter for screening mammogram for malignant neoplasm of breast Plan: Due?for?mammogram?in?December.??Ordered (5) Chronic GERD: Code(s): K21.9 - Gastro-esophageal reflux disease without esophagitis Plan: Controlled?with?famotidine She?can?use?this?daily?or?as?needed?but?I?recommended?she?work?at?anticipating?s ymptoms?for?prevention. (6) Screening for osteoporosis: Code(s): Z13.820 - Encounter for screening for osteoporosis Plan: Due?for?bone?density?again?in?December.??Ordered (7) Screening for colon cancer: Code(s): Z12.11 - Encounter for screening for malignant neoplasm of colon Plan: Colonoscopy?in?August?found?polyps?and?she?will?need?follow-up?in?12?months. Follow-up?with?[facility]?GI?as?recommended (8) Immunization counseling: Code(s): Z71.85 - Encounter for immunization safety counseling Plan: She?is?scheduled?to?get?her?COVID?booster?and?I?recommended?high- dose?flu?shot?for?her.??Also?recommended?RSV. She?may?be?up-to-date?with?her?pneumonia?shots.??Has?1?listed?last?year?and?I ?recommended?she?follow-up?with?her?pharmacy?for?a?2nd?dose?this?year?or?to?conf irm?she?is?up-to-date. Orders: Orders Comprehensive Severy. Panel Fast Today Z00.00 - Encounter for general adult medical examination without abnormal findings UA and rflx microscopic Today Z00.00 - Encounter for general adult medical examination without abnormal findings MM tomosynthesis screening BI Today Z12.31 - Encounter for screening mammogram for malignant neoplasm of breast Microalbumin, Random (w Creat) 11 Months I10 - Essential (primary) hypertension TSH reflex Free T4 11 Months Z00.00 - Encounter for general adult medical examination without abnormal findings Lipid Panel Today Z00.00 - Encounter for general adult medical examination without abnormal findings Microalbumin, Random (w Creat) Today I10 - Essential (primary) hypertension TSH reflex Free T4 Today Z00.00 - Encounter for general adult medical e xamination without abnormal findings Complete Blood Count Auto Diff Today Z00.00 - Encounter for general adult medical examination without abnormal findings XR DEXA axial skeleton Today Z13.820 - Encounter for screening for osteoporosis Comprehensive Severy. Panel Fast 11 Months Z00.00 - Encounter for general adult medical examination without abnormal findings Complete Blood Count Auto Diff 11 Months Z00.00 - Encounter for general adult medical examination without abnormal findings Lipid Panel 11 Months Z00.00 - Encounter for general adult medical examination without abnormal findings UA and rflx microscopic 1 Month Z00.00 - Encounter for general adult medical examination without abnormal findings Coding Level of Care Code Est Pt Level 3 (56263) Est Pt Prev Care >65y(87248) Diagnoses Adult general medical exam Z00.00 Hypertension, essential I10 High cholesterol E78.00 Breast cancer screening by mammogram Z12.31 Chronic GERD K21.9 Screening for osteoporosis Z13.820 Screening for colon cancer Z12.11 Immunization counseling Z71.85
[2022-11-06 08:59] VITALS: BP 138/82; PULSE 69; O2SAT 99; BMI 30.9
== END 2022-11-06 10:13 | disposition home or self-care (01) ==
PROVIDERS: PCP Hospitalist; Visit Provider Family Medicine
DX: Z00.00 Encounter for general adult medical examination without abnormal findings (principal); I10 Essential (primary) hypertension; E78.00 Pure hypercholesterolemia, unspecified; K21.9 Gastro-esophageal reflux disease without esophagitis; Z13.820 Encounter for screening for osteoporosis; Z71.85 Encounter for immunization safety counseling
CPT/HCPCS: 99397

== ENCOUNTER 2022-11-06 09:55 | Outpatient (REF) | payer MEDICARE, SELFPAY ==
[2022-11-06 11:27] LABS: Appearance Urine Clear; Color Urine Yellow; Glucose Urine UA Negative (Negative); Leukocyte Esterase Urine Moderate (2+) (Negative); Nitrite Urine Negative (Negative); PH 6.5 (5.0-9.0); Specific Gravity - Urine <= 1.005 (1.005-1.025); UMIC TRIGGER UA YES; Urine Blood Trace (Negative); Urine Ketones Negative (Negative); Urine Protein Negative (Neg-Trace)
[2022-11-06 11:37] LABS: MANUAL DIFF FLAG NO
[2022-11-06 11:57] LABS: Basophils Percent Auto 0.4 % (0-2); Eosinophils Absolute Auto 0.1 X10*3/uL (0.0-0.4); Eosinophils Percent Auto 1.3 % (0-4); Hemoglobin 14.9 g/dl (12.0-16.0); Imm Gran Abs Auto 0.02 X10*3/uL (0.00-0.03); Imm Gran Pct Auto 0.3 % (0.0-0.4); Lymphocytes Absolute Auto 2.3 X10*3/uL (1.2-4.9); Lymphocytes Percent Auto 32.9 % (20-40); Mean Corpuscular HGB Conc 32.4 g/dl (31.0-35.0); Mean Corpuscular Hemoglobin 30.6 pg (27.0-33.0); Mean Corpuscular Volume 94.5 fL (80.0-98.0); Monocytes Absolute Auto 0.7 X10*3/uL (0.1-1.2); Monocytes Percent Auto 10.5 % (2-11); Neutrophils Absolute Auto 3.7 x10*3/uL (2.0-8.3); Neutrophils Percent Auto 54.6 % (45-73); Platelet Count 243 X10*3/uL (160-400); Red Blood Count 4.87 X10*6/uL (4.20-5.50); Red Cell Distribution Width 12.3 % (11.0-16.0); White Blood Count 6.8 X10*3/uL (4.8-10.8)
[2022-11-06 12:15] LABS: Bacteria Urine None Seen (None Seen); Hyaline Casts Urine 0-2 /LPF (0-2); RBC Urine 0-2 /HPF (0-2); Squamous Epithelial Cell Urine 0-2 /HPF (0-2); WBC Urine 0-5 /HPF (0-5)
[2022-11-06 12:45] LABS: Alanine Aminotransferase 21 U/L (0-31); Albumin Level 4.4 g/dL (3.5-5.0); Alkaline Phosphatase 94 U/L (39-117); Anion Gap 13 (12-20); Aspartate Amino Transferase 24 U/L (5-31); Bilirubin Total 0.5 mg/dL (0.0-1.0); Blood Urea Nitrogen 14 mg/dL (9-16); Calcium 9.7 mg/dL (8.4-10.2); Carbon Dioxide 28 mmol/L (22-29); Chloride 102 mmol/L (96-108); Cholesterol 163 mg/dL (<200); Estimated Glomerular Filt Rate 55; Glucose Fasting 91 mg/dL (60-99); HDL Cholesterol 61 mg/dL (>40); LDL Cholesterol Calculated 80 mg/dL (<100); Potassium 4.4 mmol/L (3.3-5.1); Sodium 139 mmol/L (135-145); TSH reflex Free T4 2.33 uIU/mL (0.32-4.0); Total Protein 7.6 g/dL (6.5-8.0); Triglycerides 112 mg/dL (<150)
[2022-11-06 13:04] LABS: Creatinine Urine 29.49 mg/dL; Microalbumin Urine < 5.0 mg/L
== END 2022-11-06 09:56 | disposition home or self-care (01) ==
LOC: HO.WFDLDS 09:55
PROVIDERS: Visit Provider Family Medicine
DX: Z00.00 Encounter for general adult medical examination without abnormal findings (principal); I10 Essential (primary) hypertension
CPT/HCPCS: 36415; 80053; 80061; 81001; 82043; 82570; 84443; 85025

== ENCOUNTER 2022-11-29 16:55 | Outpatient (AMB) | payer MEDICARE, SELFPAY ==
--- NOTE | 2022-11-29 16:47 | MHC.PC.OV ---
Intake Visit Reasons: f/u CPE-labs Intake Note: Patient is following up on labs, and would like a prescription of Famotidine. Allergies No Known Allergies Allergy (Verified 11/29/22 16:48) Tobacco use date assessed: 11/29/22 Dental Screening Did you have a dental visit in the last 12 months?: No Did you have a dental problem in the last 6 months where you did not have access to dental care?: No Was dental information given to patient?: No HPI f/u CPE-labs HPI Details 72 y/o female presents to f/u CPE-labs via telemedicine. Labs were drawn 11/06/22. Reviewed labs with pt. Triglycerides 112. TC 163. LDL 80. HDL 61. She is on artovastatin 10mg daily. [facility] Medical History Multiple polyps of sigmoid colon Vitamin D deficiency GERD (gastroesophageal reflux disease) Elevated cholesterol HTN (hypertension) Colon cancer Surgical History Hx of colonoscopy History of partial colectomy History of surgical amputation of finger of left hand History of partial hysterectomy [facility] History [facility] Are you a primary manager career to a significant other at home: No Do you presently have visiting nurse or other home services: No Patient Tobacco Use Status: Former Tobacco user Quit Date: 40 yrs ago Tobacco use type: Cigarette e-Cigarette/Vaping Use: Never Used service: No Current occupational status: retired Cognitive needs: No Hearing needs: No Vision needs: No Questionnaire Thrive Questionnaire Date Thrive assessed: 01/17/21 MAYE-7 AMB Questionnaire MAYE-7 Date MAYE - 7 assessed: 11/06/22 Source: Developed by Drs. Janes Rutherford, Cristina Bender, Anirudh Lam and colleagues, with an educational julio from [employer]. Review of Systems Const Denies chills, Denies fatigue, Denies fever(s), Denies headache(s) and Denies weakness ENT Denies dizziness and Denies headache(s) Card Denies dyspnea Resp Denies cough, Denies dyspnea, Denies wheezing and Denies other (shortness of breath) Musc Denies numbness and Denies tingling Neuro Denies dizziness, Denies headache(s), Denies numbness, Denies tingling and Denies weakness Psych Denies anxiety and Denies depression Endo Denies fatigue Aller/Immun Denies wheezing Physical exam (Primary Care) Tobacco/Smoking Status: Tobacco use Status Tobacco use date assessed 11/29/22 11/29/22 16:52 Patient Tobacco Use Status Former Tobacco user 11/29/22 16:52 Tobacco use type Cigarette 11/29/22 16:52 e-Cigarette/Vaping Use Never Used 11/29/22 16:52 Thrive Assessment: Date of Thrive Assessment Date Thrive assessed 01/17/21 11/29/22 16:52 Telehealth Telehealth Minutes spent on Phone/Video with Pt.: 5 Assessment and Plan Assessment & Plan (1) High cholesterol: Code(s): E78.00 - Pure hypercholesterolemia, unspecified Plan: Lipids?are?well?controlled?on?atorvastatin?10?mg?daily Continue?current?medication?regimen (2) Encounter for counseling regarding immunization: Code(s): Z71.85 - Encounter for immunization safety counseling Plan: She?says?she?had?some?difficulty?getting?scheduled?for?high-dose?flu?shot?at?her?pharmacy.??She?will?try?this?once?more?and?if?she?is?unable?to?do?so?she?will?come?here?for?regular?dose?flu?shot. (3) Chronic GERD: Code(s): K21.9 - Gastro-esophageal reflux disease without esophagitis Plan: Refilled?famotidine Medications: Changed From famotidine 20 mg PO DAILY PRN Acid Reflux To famotidine 20 mg PO DAILY PRN 90 tabs 3RF Acid Reflux 90 days Coding Level of Care Code Tele Est Pt Level 2 (92172) Diagnoses High cholesterol E78.00 Encounter for counseling regarding immunization Z71.85 Chronic GERD K21.9
== END 2022-11-29 17:00 | disposition home or self-care (01) ==
LOC: HO.HMGFM 16:55
PROVIDERS: PCP Nurse Practitioner Family; Visit Provider Family Medicine
DX: E78.00 Pure hypercholesterolemia, unspecified (principal); Z71.85 Encounter for immunization safety counseling; K21.9 Gastro-esophageal reflux disease without esophagitis
CPT/HCPCS: G2012

== ENCOUNTER 2022-12-19 13:20 | Outpatient (REF) | payer MEDICARE, SELFPAY ==
--- NOTE | ~2022-12-19 | MM_ITS ---
EXAMINATION: MM SCREENING DIGITAL BREAST TOMOSYNTHESIS, BILATERAL CLINICAL INFORMATION: Screening. Asymptomatic. COMPARISON: Mammography: This study is compared with prior exams dating back to 2017. TECHNIQUE: Digital breast tomosynthesis is performed in both the craniocaudal and mediolateral oblique views along with computer-aided detection (CAD). Synthesized 2D images are generated from the tomosynthesis. FINDINGS: There are scattered areas of fibroglandular density (ACR BI-RADS breast composition Category b). There are no significant masses, abnormal calcifications, or other abnormalities. Scattered, benign calcifications are present in each breast. MM/MM tomosynthesis screening BI IMPRESSION: No mammographic evidence of malignancy. ASSESSMENT: BI-RADS BI-RADS 2 - Benign Findings RECOMMENDATION: Routine annual mammography screening. 1 year F/U This examination should not preclude the clinical evaluation of a suspicious palpable abnormality. This patient's information was entered into a reminder system with a target due date for their next mammogram.
--- NOTE | ~2022-12-19 | MM_ITS ---
EXAMINATION: BONE DENSITOMETRY CLINICAL INDICATION: Age-related osteoporosis without current pathological fracture. COMPARISON: Baseline BD dated 12/08/2020. TECHNIQUE: Using a [employer] DXA System (software version: 13.1) manufactured by [employer], dual-energy x-ray absorptiometry was performed of the lumbar spine and left hip. The images are of good technical quality. Summary results are attached. FINDINGS: LEFT FEMUR, NECK: Current: BMD 1.035 g/cm2, Z-score 1.5, T-score 0.0, normal. Baseline: BMD 1.022 g/cm2. LEFT FEMUR, TOTAL: Current: BMD 1.168 g/cm2, Z-score 2.6, T-score 1.3, normal, 5.3% decrease from baseline (<5% change is not significant). Baseline: BMD 1.234 g/cm2. AP SPINE L1-L4: Current: BMD 1.454 g/cm2, Z-score 3.5, T-score 2.3, normal, 3.1% decrease from baseline (<5% change is not significant). Baseline: BMD 1.501 g/cm2. IDENTIFIED RISK FACTORS: Early menopause, hysterectomy, secondary osteoporosis. HISTORY OF FRACTURE: None listed. MEDICATIONS: Vitamin D. MM/XR DEXA axial skeleton IMPRESSION: 1. DIAGNOSIS: Normal bone density based on the lowest T-score value of 0.0 in the femoral neck applying World Health Organization criteria. 2. 10-YEAR FRACTURE RISK PREDICTION, FRAX: According to the guidelines, FRAX calculation should only be performed on patients in the osteopenia bone density category. Therefore, FRAX was not performed on this patient. 3. Treatment Recommendations: NOF guidelines recommend consideration for treatment in postmenopausal women and men age 50 and older presenting with the following: -A hip or vertebral (clinical or morphometric) fracture. -T-score less than or equal to -2.5 at the femoral neck or spine after appropriate evaluation to exclude secondary causes. -Low bone mass at the hip or spine and a 10-year fracture probability by FRAX of greater than or equal to 3% for hip fracture or greater than or equal to 20% for major osteoporotic fracture based on the [place] adapted WHO algorithm. 4. Other Recommendations: All treatment decisions require clinical judgment and consideration of individual patient factors, including patient preferences, comorbidities, previous drug use, risk factors not captured in the FRAX model (e.g. frailty, falls, vitamin D deficiency, increased bone turnover, interval significant decline in bone density) and possible under or overestimation of fracture risk by FRAX. FUTURE SCAN RECOMMENDATION: People with diagnosed cases of osteoporosis or at high risk for fracture should have regular bone mineral density tests. For patients eligible for Medicare, routine testing is allowed once every 2 years. The testing frequency can be increased to one year for patients who have rapidly progressing disease, those who are receiving or discontinuing medical therapy to restore bone mass, or have additional risk factors.
== END 2022-12-19 13:21 | disposition home or self-care (01) ==
LOC: HO.MAMMO 13:20
PROVIDERS: PCP Family Medicine; Visit Provider Family Medicine
DX: Z12.31 Encounter for screening mammogram for malignant neoplasm of breast (principal); Z13.820 Encounter for screening for osteoporosis; Z78.0 Asymptomatic menopausal state; M81.0 Age-related osteoporosis without current pathological fracture
CPT/HCPCS: 77063; 77067; 77080

== ENCOUNTER → 2022-12-19 14:00 | Outpatient (BNV) | payer MEDICARE, SELFPAY | PROVIDERS: PCP Family Medicine; Visit Provider Radiology Diagnostic Radiology | DX: Z12.31 Encounter for screening mammogram for malignant neoplasm of breast (principal) | CPT/HCPCS: 77063; 77067 ==

== ENCOUNTER 2023-07-04 11:02 | Outpatient (AMB) | payer MEDICARE, SELFPAY ==
[2023-07-04 11:19] VITALS: BP 138/80; PULSE 83; RESP 14; TEMP 36.1; O2SAT 99; BMI 30.6
--- NOTE | 2023-07-04 11:19 | A.OFFPC_ITS ---
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: No Accompanied by: Self / Same As Patient Allergies No Known Allergies Allergy (Verified 07/04/23 11:25) Medication List - Last Reconciled 07/04/23 by ASYA Arroyo- aspirin (Adult Aspirin Regimen) 81 mg PO DAILY atorvastatin 10 mg PO DAILY cholecalciferol (vitamin D3) 50 mcg PO DAILY famotidine 20 mg PO DAILY PRN 90 days glucosamine sulfate 1,500 mg PO DAILY hydrochlorothiazide 25 mg PO DAILY losartan 100 mg PO DAILY Tobacco use date assessed: 07/04/23 Fall risk assessment: No Falls in past year Last assessed Fall Risk: 07/04/23 Dental Screening Dental Screen Date: 07/04/23 Did you have a dental visit in the last 12 months?: Yes Did you have a dental problem in the last 6 months where you did not have access to dental care?: No Was dental information given to patient?: Patient has dentist HPI HPI Comments History of Present Illness Details 73 year old female with hyperlipidemia, vitamin-D deficiency, GERD, hypertension Here today for preoperative clearance. Surgery Type: sacrospinous lig fixation, anterior and posterior repair, bulking agent Anesthesia Type: General Surgeon: Dr Hannah Pearce Date: 07/23/23 Any past surgical procedures: yes Any complications from anesthesia or in post-op period: none ASA or NSAID Use: currently taking ASA; uses Aleve PRN. Current smoker: Denies Alcohol use: Drinks 1 glass of wine per week; denies any hx of withdrawl sx. Drug use: denies METs: > 4 climb flight of stairs, golf, walk, yardwork Medical history: Asthma Denies COPD Denies Obesity BMI 30.6 today Diabetes Denies Testing done today: EKG within normal limits. CBC within normal limits, CMP within normal limits. Cardiac Risk Index Score = 8 points Interpretation:?Class II 7% Complications Education She is acceptable risk for surgery. Medically cleared for surgery. Aspirin and NSAIDS should be discontinued one week before surgery to prevent excessive bleeding. If you are a smoker, there is increase risk of post surgical complications. Cessation is encouraged. Follow up with surgeon and all recommendations pre and post operatively. [facility] Medical History Multiple polyps of sigmoid colon Vitamin D deficiency GERD (gastroesophageal reflux disease) Elevated cholesterol HTN (hypertension) Colon cancer Surgical History Hx of colonoscopy History of partial colectomy History of surgical amputation of finger of left hand History of partial hysterectomy Social History Housing: Condominium Are you a primary medical care administrator to a significant other at home: No Do you presently have visiting nurse or other home services: No Comment: aware of trip hazard Patient Tobacco Use Status: Former Tobacco user Quit Date: 40 yrs ago Tobacco use type: Cigarette e-Cigarette/Vaping Use: Never Used service: No Current occupational status: retired Cognitive needs: No Hearing needs: No Vision needs: No Questionnaire Thrive Questionnaire Date Thrive assessed: 01/17/21 MAYE-7 AMB Questionnaire MAYE-7 Date MAYE - 7 assessed: 11/06/22 Source: Developed by Drs. Janes Rutherford, Cristina Bender, Anirudh Lam and colleagues, with an educational julio from [employer]. Review of Systems Const All systems reviewed & are unremarkable except as noted in HPI and below Physical exam (Primary Care) Vital Signs: Last Vital Signs Temp 97 F 07/04/23 11:19 Pulse 83 07/04/23 11:19 Resp 14 07/04/23 11:19 BP 138/80 07/04/23 11:19 Pulse Ox 99 07/04/23 11:19 Oxygen Delivery Method Room Air 07/04/23 11:19 BMI result Body Mass Index 30.6 Tobacco/Smoking Status: Tobacco use Status Tobacco use date assessed 07/04/23 07/04/23 11:26 Patient Tobacco Use Status Former Tobacco user 07/04/23 11:26 Tobacco use type Cigarette 07/04/23 11:26 e-Cigarette/Vaping Use Never Used 07/04/23 11:26 Thrive Assessment: Date of Thrive Assessment Date Thrive assessed 01/17/21 07/04/23 11:26 Const Other: Awake alert oriented no acute distress Regular rate and rhythm Lung sounds clear to auscultation bilat Assessment and Plan Assessment & Plan (1) Pre-op exam: Code(s): Z01.818 - Encounter for other preprocedural examination Plan: Acceptable medical risk for surgery. Medically cleared for surgery. Plan This note is constructed using voice recognition software. While every effort has been made to ensure accuracy in warehouse distribution specialist, still errors may have been included Sometimes, these errors may affect the content or meaning of the given sentence . Total time spent caring for the patient today was 45 minutes. This includes time spent before the visit reviewing the chart, time spent during the visit, and time spent after the visit on documentation Orders: Orders Comprehensive Met. Panel Today Z01.818 - Encounter for other preprocedural examination Complete Blood Count no Diff Today Z01.818 - Encounter for other preprocedural examination Coding Level of Care Code Est Pt Level 5 (55515) Diagnoses Pre-op exam Z01.818
== END 2023-07-04 16:33 | disposition home or self-care (01) ==
PROVIDERS: PCP Family Medicine; Visit Provider Nurse Practitioner Family
DX: I10 Essential (primary) hypertension (principal); Z01.818 Encounter for other preprocedural examination; E78.5 Hyperlipidemia, unspecified
CPT/HCPCS: 99215

== ENCOUNTER 2023-07-04 11:58 | Outpatient (REF) | payer MEDICARE, SELFPAY ==
[2023-07-04 15:19] LABS: Hematocrit 43.6 % (37.0-47.0); Hemoglobin 14.2 g/dl (12.0-16.0); Mean Corpuscular HGB Conc 32.6 g/dl (31.0-35.0); Mean Corpuscular Hemoglobin 30.9 pg (27.0-33.0); Mean Corpuscular Volume 94.8 fL (80.0-98.0); Mean Platelet Volume 10.5 fL (9.4-12.3); Platelet Count 245 X10*3/uL (160-400); Red Cell Distribution Width 12.3 % (11.0-16.0); White Blood Count 6.5 X10*3/uL (4.8-10.8)
[2023-07-04 15:36] LABS: Alanine Aminotransferase 18 U/L (0-31); Albumin Level 4.2 g/dL (3.5-5.0); Alkaline Phosphatase 95 U/L (39-117); Anion Gap 13 (12-20); Aspartate Amino Transferase 21 U/L (5-31); Bilirubin Total 0.4 mg/dL (0.0-1.0); Blood Urea Nitrogen 15 mg/dL (9-16); Calcium 9.8 mg/dL (8.4-10.2); Carbon Dioxide 30 mmol/L (22-29); Chloride 104 mmol/L (96-108); Estimated Glomerular Filt Rate 56; Glucose Random 70 mg/dL (60-115); Potassium 3.5 mmol/L (3.3-5.1); Sodium 143 mmol/L (135-145); Total Protein 7.1 g/dL (6.5-8.0)
== END 2023-07-04 11:59 | disposition home or self-care (01) ==
LOC: HO.WFDLDS 11:58
PROVIDERS: Visit Provider Nurse Practitioner Family
DX: Z01.818 Encounter for other preprocedural examination (principal)
CPT/HCPCS: 36415; 80053; 85027

== ENCOUNTER 2023-11-05 09:35 | Day surgery (SDC) | payer MEDICARE, SELFPAY ==
--- NOTE | 2023-11-02 10:38 | HO.ANESPROP2 ---
Documented by User: Malu Boateng NP 11/02/23 10:39 HPI - Anesthesia Eval Consult details Narrative: 73yo F for Colonoscopy PMFSH Active Problems Active Problems: All Active Problems Incontinence in female (Acute) Difficulty urinating (Acute) Encounter for counseling regarding immunization (Acute) Age related osteoporosis (Acute) Adult general medical exam (Acute) Decreased GFR (Acute) Facial lesion (Acute) Normal physical exam (Acute) Serrated polyposis syndrome (Acute) High cholesterol (Acute) Vitamin D deficiency (Acute) Chronic GERD (Acute) Hypertension, essential (Acute) Osteoarthritis (arthritis due to wear and tear of joints) (Acute) Encounter for general adult medical examination without abnormal findings (Acute) Breast cancer screening by mammogram (Acute) Screening for colon cancer (Acute) Screening for osteoporosis (Acute) History of colon cancer (Acute) Past Medical History Medical History (Updated 11/05/23 @ 10:31 by Destiny Ng RN) Rectal prolapse Multiple polyps of sigmoid colon Vitamin D deficiency GERD (gastroesophageal reflux disease) Elevated cholesterol HTN (hypertension) Colon cancer Family History Family history of problems with anesthesia: No Surgical History Surgical History Hx of colonoscopy History of partial colectomy History of surgical amputation of finger of left hand History of partial hysterectomy History of Problems with Anesthesia: No Social History Social History [facility] Are you a primary medication care manager to a significant other at home: No Do you presently have visiting nurse or other home services: No Comment: aware of trip hazard Patient Tobacco Use Status: Former Tobacco user Tobacco use type: Cigarette e-Cigarette/Vaping Use: Never Used Use of substances other than those prescribed or required for medical reasons: No Are you DNR?: No Advance Directives: No Advance Directives Information Provided: Yes Advance Directives on File: No Recently lost weight without trying: No Nutrition Risks: No Nutritional Risk service: No Current occupational status: retired Cognitive needs: No Hearing needs: No Vision needs: No Meds Allergies Allergy/AdvReac Type Severity Reaction Status Date / Time No Known Allergies Allergy Verified 07/04/23 11:25 Home Medications ?Medication ?Instructions ?Recorded ?Confirmed ?Last Taken ?Type glucosamine sulfate 1,000 mg 1,500 mg PO DAILY 12/24/19 07/04/23 03/01/22 History capsule aspirin 81 mg tablet,delayed 81 mg PO DAILY 11/10/21 07/04/23 03/01/22 History release (Adult Aspirin Regimen) cholecalciferol (vitamin D3) 25 50 mcg PO DAILY 11/06/22 07/04/23 Unknown History mcg (1,000 unit) capsule Assessment and Plan Assessment Anesthesia Assessment: Chart Reviewed Final Anesthetic Review Family History of Problems with Anesthesia: No History of Problems with Anesthesia: No Documented by User: Michel Grace MD 11/05/23 11:16 [facility] Past Medical History Medical History (Updated 11/05/23 @ 10:31 by Destiny Ng RN) Rectal prolapse Multiple polyps of sigmoid colon Vitamin D deficiency GERD (gastroesophageal reflux disease) Elevated cholesterol HTN (hypertension) Colon cancer Surgical History Surgical History Hx of colonoscopy History of partial colectomy History of surgical amputation of finger of left hand History of partial hysterectomy Social History Social History [facility] Are you a primary medication care manager to a significant other at home: No Do you presently have visiting nurse or other home services: No Comment: aware of trip hazard Patient Tobacco Use Status: Former Tobacco user Tobacco use type: Cigarette e-Cigarette/Vaping Use: Never Used Use of substances other than those prescribed or required for medical reasons: No Are you DNR?: No Advance Directives: No Advance Directives Information Provided: Yes Advance Directives on File: No Recently lost weight without trying: No Nutrition Risks: No Nutritional Risk service: No Current occupational status: retired Cognitive needs: No Hearing needs: No Vision needs: No Meds Allergies Allergy/AdvReac Type Severity Reaction Status Date / Time No Known Allergies Allergy Verified 07/04/23 11:25 Home Medications ?Medication ?Instructions ?Recorded ?Confirmed ?Last Taken ?Type glucosamine sulfate 1,000 mg 1,500 mg PO DAILY 12/24/19 07/04/23 03/01/22 History capsule aspirin 81 mg tablet,delayed 81 mg PO DAILY 11/10/21 07/04/23 03/01/22 History release (Adult Aspirin Regimen) cholecalciferol (vitamin D3) 25 50 mcg PO DAILY 11/06/22 07/04/23 Unknown History mcg (1,000 unit) capsule Exam Airway Mallampati Class: II TM Dist: >3cm Neck ROM: Full Assessment and Plan Assessment Anesthesia Assessment: Anesthesia Plan Discussed Final Anesthetic Review NPO: Yes ASA Class: II Final Preanesthetic Review: No Changes in Pt Med Stat, Meds/Allgs Chart Reviewed, Consent Obtained/Reviewed and Anes Risks/Benef Reviewed Patient Risk: Low Procedure Risk: Low Anesthetic Plan Anesthetic Plan: TIVA Disposition: Standard PACU
--- NOTE | 2023-11-05 10:25 | MHC.SHP ---
Pre-Procedural Eval Section A - 24 Hr Update-Section A only Date of Service: 11/05/23 The patient is an INPATIENT: No The patient has been examined within 24 hours of the surgical procedure. The History & Physical has been completed within 30 days and I have reviewed it.: No Section B - Complete if H&P > 30 days Chief Complaint: Surveillance for colon polyps Relevant Family History (Specify if Yes): No Relevant Social History: Tobacco Use (Former smoker) Present Medications: see Short Stay Collaborative assessment Medical History: Significant History (Colon cancer Elevated cholesterol GERD (gastroesophageal reflux disease) HTN (hypertension) Multiple polyps of sigmoid colon Vitamin D deficiency) History of Previous Operations: Relevant previous surgery/procedure and date(s) (History of partial colectomy History of partial hysterectomy History of surgical amputation of finger of left hand Hx of colonoscopy) Allergies: Allergies Allergy/AdvReac Type Severity Reaction Status Date / Time No Known Allergies Allergy Verified 07/04/23 11:25 Review of Systems Sugical H&P ROS: Negative: Constitution, Cardiovascular, Respiratory and Gastrointestinal Exam Surgical H&P Exam: Normal: Heart, Normal: Lungs, Normal: Extremities and Normal: Abdomen Plan Diagnosis/Plan: Change (proceed with colonoscopy) I have reviewed the history and physical and performed a pertinent physical examination on my patient. No changes have occurred unless specified. Time Spent With Patient Time: Total time managing care of this patient today ____ minutes.
[2023-11-05 10:35] VITALS: BMI 31.1
[2023-11-05 10:39] VITALS: BP 184/88; PULSE 74; RESP 16; TEMP 37.1; O2SAT 99
[2023-11-05] MEDS: Lactated Ringers 1,000 ML 100 ML IVCONT (10:50)
--- NOTE | 2023-11-05 12:04 | P.OPN-COLO_ITS ---
Colonoscopy Operative Note Operative Note Date of Service: 11/05/23 Narrative: COLONOSCOPY TILL CECUM WITH SNARE POLYPECTOMY, SUBMUCOSAL INJECTION AND HEMOCLIP PLACEMENT Pre-op diagnosis: Surveillance for multiple colon polyps. Post-op diagnosis:? Colon polyps, Diverticulosis, hemorrhoids Endoscopist:? Petr Alarcon MD Anesthesia:?MAC Consent: Indications for the procedure and potential complications of bleeding, perforation, reaction to medications and missed diagnosis were discussed with the patient and informed consent was obtained. Instrument: Olympus PCF H 190 L variable stiffness pediatric colonoscope Monitoring: Vital signs and clinical assessment, intermittent blood pressure monitoring, continuous EKG monitoring, Pulse oximetry and Carbon Dioxide monitoring were done throughout the procedure. Please see anesthesia flowsheet. Colon withdrawl time was 25 minutes. Procedure: The patient was placed in the left lateral decubitis position and pre-procedure medications were administered. After a digital rectal examination of the ano-rectum, the video colonoscope was inserted into the rectum and advanced through the colon to the ileo-colic anastomosis at 85 cms. The colonoscope was slowly withdrawn in a retrograde panoramic fashion and the colon mucosa was carefully examined including a retroflexed view of the rectum. Findings and interventions are described below. Procedure Difficulty: without difficulty Findings: Terminal Ileum: Silverio-terminal ileum was normal Ileo-colic anastomosis: A 1.5 cms flat polyps near the anastomotic site. Polyp was raised with 5 cc of Eleview and removed piecemeal with hot snare. Margins of the polypectomy site were treated with cautery using snare tip Polypectomy site was closed with 1 hemoclip. Transverse Colon: A 5 cms smooth yellowish benign appearing nodule at 80 cms - submucosal lipoma on biopsies obtained during previous colonoscopy. A 2 cms flat polyp at 65 cms. Polyp was raised with 5 cc of Eleview and removed piecemeal with hot snare. Margins of the polypectomy site were treated with cautery using snare tip Polypectomy site was closed with 1 hemoclip and marked by Mylene ink. A 7-8 mm sessile polyp at 65 cms - removed with a hot snare Descending Colon: Moderate diverticulosis Sigmoid Colon: Moderate diverticulosis Rectum: Normal Ano-rectum: Moderate internal hemorrhoids Colon preparation: Excellent, after some irrigation. [place] Bowel Preparation Scale Right colon; 3 Transverse colon: 3 Left colon; 3 (0 = Unprepared colon segment with mucosa not seen due to solid stool that cannot be cleared. 1 = Portion of mucosa of the colon segment seen, but other areas of the colon segment not well seen due to staining, residual stool and/or opaque liquid. 2 = Minor amount of residual staining, small fragments of stool and/or opaque liquid, but mucosa of colon segment seen well. 3 = Entire mucosa of colon segment seen well with no residual staining, small fragments of stool or opaque liquid) Impression and Post Procedure Diagnosis: Colonoscopy Findings: Two medium sized and one small polyps were removed Moderate diverticulosis seen in the left colon Moderate hemorrhoids on antegrade exam. Plan: Pt has a FU appointment on 11/20/23 with Susi Ramirez NP. Repeat Colonoscopy in 1 year if polyps are adenomatous and due to a history of multiple colon polyps Above findings were reviewed with the patient and relevant handouts were given in the discharge area. BIOPSIES SHOWED: A. Colon, anastomosis, polypectomy: Fragments of sessile serrated lesion/polyp; negative for cytologic dysplasia. B. Colon, transverse at 65 cm, polypectomies: Fragments of sessile serrated lesions/polyps; negative for cytologic dysplasia. Letter sent to the patient advising repeat colonoscopy in 1 year. Patient was placed on the colonoscopy recall list.
[2023-11-05 12:05] VITALS: BP 147/83; PULSE 71; RESP 14; TEMP 36.4; O2SAT 97
[2023-11-05 12:20] VITALS: BP 172/86; PULSE 71; RESP 16; O2SAT 99
== END 2023-11-05 13:05 | disposition home or self-care (01) ==
PROVIDERS: PCP Family Medicine; Visit Provider Internal Medicine Gastroenterology
PROC: 0DJD8ZZ Inspection of Lower Intestinal Tract, Via Natural or Artificial Opening Endoscopic (ICD-10-PCS; CPT 45378; principal; 2023-11-05 11:00)
DX: Z12.11 Encounter for screening for malignant neoplasm of colon (principal); Z85.038 Personal history of other malignant neoplasm of large intestine; Z86.010 Personal history of colon polyps; D12.3 Benign neoplasm of transverse colon; Z98.0 Intestinal bypass and anastomosis status; D12.6 Benign neoplasm of colon, unspecified; K57.30 Diverticulosis of large intestine without perforation or abscess without bleeding; K64.8 Other hemorrhoids; D17.5 Benign lipomatous neoplasm of intra-abdominal organs; K21.9 Gastro-esophageal reflux disease without esophagitis; I10 Essential (primary) hypertension; E78.00 Pure hypercholesterolemia, unspecified; E55.9 Vitamin D deficiency, unspecified; Z90.49 Acquired absence of other specified parts of digestive tract; Z87.891 Personal history of nicotine dependence
CPT/HCPCS: 45385; 45381; 88305; J2704

== ENCOUNTER → 2023-11-05 09:35 | Outpatient (BNV) | payer MEDICARE, SELFPAY | PROVIDERS: PCP Family Medicine; Visit Provider Internal Medicine Gastroenterology | DX: Z12.11 Encounter for screening for malignant neoplasm of colon (principal); Z86.010 Personal history of colon polyps; K63.5 Polyp of colon; K57.90 Diverticulosis of intestine, part unspecified, without perforation or abscess without bleeding; K64.8 Other hemorrhoids | CPT/HCPCS: 45380; 45381; 45385 ==

== ENCOUNTER 2023-11-07 08:00 | Outpatient (REF) | payer MEDICARE, SELFPAY ==
[2023-11-07 11:01] LABS: MANUAL DIFF FLAG NO
[2023-11-07 11:12] LABS: Appearance Urine Clear; Color Urine Yellow; Glucose Urine UA Negative (Negative); Leukocyte Esterase Urine Small (1+) (Negative); Nitrite Urine Negative (Negative); PH 6.5 (5.0-9.0); UMIC TRIGGER UA YES; Urine Blood Small (1+) (Negative); Urine Ketones Negative (Negative); Urine Protein Negative (Neg-Trace)
[2023-11-07 11:15] LABS: Basophils Percent Auto 0.7 % (0-2); Eosinophils Absolute Auto 0.1 X10*3/uL (0.0-0.4); Eosinophils Percent Auto 1.8 % (0-4); Hematocrit 44.1 % (37.0-47.0); Hemoglobin 14.2 g/dl (12.0-16.0); Imm Gran Abs Auto 0.02 X10*3/uL (0.00-0.03); Imm Gran Pct Auto 0.4 % (0.0-0.4); Lymphocytes Absolute Auto 1.9 X10*3/uL (1.2-4.9); Lymphocytes Percent Auto 33.1 % (20-40); Mean Corpuscular HGB Conc 32.2 g/dl (31.0-35.0); Mean Corpuscular Volume 93.2 fL (80.0-98.0); Mean Platelet Volume 10.4 fL (9.4-12.3); Monocytes Absolute Auto 0.6 X10*3/uL (0.1-1.2); Monocytes Percent Auto 9.6 % (2-11); Neutrophils Absolute Auto 3.1 x10*3/uL (2.0-8.3); Neutrophils Percent Auto 54.4 % (45-73); Platelet Count 257 X10*3/uL (160-400); Red Blood Count 4.73 X10*6/uL (4.20-5.50); Red Cell Distribution Width 12.4 % (11.0-16.0); White Blood Count 5.7 X10*3/uL (4.8-10.8)
[2023-11-07 11:51] LABS: Bacteria Urine None Seen (None Seen); Hyaline Casts Urine 0-2 /LPF (0-2); WBC Urine 0-5 /HPF (0-5)
[2023-11-07 11:54] LABS: Alanine Aminotransferase 18 U/L (0-31); Albumin Level 4.2 g/dL (3.5-5.0); Alkaline Phosphatase 91 U/L (39-117); Anion Gap 13 (12-20); Aspartate Amino Transferase 20 U/L (5-31); Blood Urea Nitrogen 14 mg/dL (9-16); Calcium 9.6 mg/dL (8.4-10.2); Carbon Dioxide 27 mmol/L (22-29); Chloride 105 mmol/L (96-108); Cholesterol 170 mg/dL (<200); Estimated Glomerular Filt Rate 54; Glucose Fasting 95 mg/dL (60-99); HDL Cholesterol 63 mg/dL (>40); Potassium 3.7 mmol/L (3.3-5.1); Sodium 141 mmol/L (135-145); TSH reflex Free T4 2.33 uIU/mL (0.32-4.0); Total Protein 7.4 g/dL (6.5-8.0)
[2023-11-07 11:56] LABS: Bilirubin Total 0.6 mg/dL (0.0-1.0); LDL Cholesterol Calculated 89 mg/dL (<100); Triglycerides 91 mg/dL (<150)
[2023-11-07 11:56] LABS: Creatinine Urine 221.78 mg/dL
== END 2023-11-07 08:01 | disposition home or self-care (01) ==
LOC: HO.WFDLDS 08:00
PROVIDERS: Visit Provider Family Medicine
DX: Z00.00 Encounter for general adult medical examination without abnormal findings (principal); I10 Essential (primary) hypertension
CPT/HCPCS: 36415; 80053; 80061; 81001; 82043; 82570; 84443; 85025

== ENCOUNTER 2023-11-12 08:08 | Outpatient (REF) | payer MEDICARE, SELFPAY ==
[2023-11-12 11:27] LABS: Appearance Urine Clear; Color Urine Yellow; Glucose Urine UA Negative (Negative); Leukocyte Esterase Urine Trace (Negative); Nitrite Urine Negative (Negative); UMIC TRIGGER UA YES; Urine Blood Negative (Negative); Urine Ketones Negative (Negative); Urine Protein Negative (Neg-Trace)
[2023-11-12 11:46] LABS: Bacteria Urine None Seen (None Seen); Hyaline Casts Urine 0-2 /LPF (0-2); RBC Urine 0-2 /HPF (0-2); Squamous Epithelial Cell Urine 0-2 /HPF (0-2); WBC Urine 0-5 /HPF (0-5)
== END 2023-11-12 08:09 | disposition home or self-care (01) ==
LOC: HO.LNP 08:08
PROVIDERS: PCP Family Medicine; Visit Provider Physician Assistant Medical
DX: Z00.00 Encounter for general adult medical examination without abnormal findings (principal); R39.9 Unspecified symptoms and signs involving the genitourinary system; E78.00 Pure hypercholesterolemia, unspecified; I10 Essential (primary) hypertension; Z85.038 Personal history of other malignant neoplasm of large intestine; R31.29 Other microscopic hematuria
CPT/HCPCS: 81001; 87086; 99397

== ENCOUNTER 2023-11-12 08:08 | Outpatient (AMB) | payer MEDICARE, SELFPAY ==
--- NOTE | 2023-11-12 08:27 | MHC.PC.OV ---
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 Her primary care provider is Dr. Naranjo. The patient's blood pressure today is 142/80. Hypertension is treated with losartan 100 mg and hydrochlorothiazide 25 mg daily. Patient endorses compliance with the medications. She drank a cup of coffee prior to the visit. She has a blood pressure cuff at home, but she has not checked it routinely. Hyperlipidemia is treated with 10 mg of atorvastatin daily. The patient had a colonoscopy 11/05/2023. She has a history of colon cancer. Patient says they removed 3 polyps and will repeat the colonoscopy in another year. She will go to the pharmacy to receive the high-dose flu vaccine. She says she has had a tetanus vaccine within the last 10 years and we will confirm it with the pharmacy. We reviewed all of her laboratory test results from November. There is microscopic blood on the urinalysis from 11/24/2022 and 11/25/2023. Denies gina hematuria, dysuria, frequency, flank pain, abdominal pain. She has seen Urogynecology at [facility] for incontinence. Denies history of kidney stones. She is a former smoker. She quit 30 years ago. She is up-to-date with Gynecology exam. She has an upcoming visit with Dermatology for a skin exam. Last bone density 12/19/2022. Last mammogram 12/19/2022. She has a mammogram scheduled. ROS: Constitutional: No unexplained weight loss, fever, chills, fatigue or night sweats. Eyes: No vision changes, blurry vision, double vision, eye pain, eye redness, eye discharge. ENT: No hearing loss, sneezing, congestion, runny nose or sore throat. Respiratory: No shortness of breath, cough or sputum production. Cardiovascular: No chest pain, chest pressure or chest discomfort. No palpitations or pedal edema. Gastrointestinal: No anorexia, nausea, vomiting or diarrhea. No abdominal pain or blood in stool. Genitourinary: No dysuria, hematuria, urinary frequency. Neurologic: No headache, dizziness, syncope, unilateral weakness, ataxia, numbness or tingling in the extremities. Musculoskeletal: No muscle pain, back pain, joint pain or swelling. Hematologic/Lymphatics: No bleeding or bruising. No painful lymph nodes. Skin: No rash or itching. Endocrine: No cold or heat intolerance. No polyuria or polydipsia. Psychiatric: No depression or anxiety. No SI/HI. Physical exam: Constitutional: Alert, in no distress. Head: Normocephalic. Eyes: Pupils are equal, round and reactive to light. Extraocular muscles intact. Ear, Nose and Throat: Canals clear. TMs normal. Normal nasal mucosa. No nasal discharge. No oral lesions. Neck: Supple, Full range of motion. No lymphadenopathy. No palpable thyroid masses. Respiratory: Clear to auscultation. Cardiovascular: S1 S2 regular. No murmurs. No carotid bruits. Gastrointestinal: Abdomen soft, non-tender, non-distended. Normal bowel sounds. No palpable masses. Genitourinary: No costovertebral angle tenderness. Neurologic: No focal neurological deficits. Moves all extremities spontaneously. Sensation intact bilaterally. Skin: No rashes. Musculoskeletal: No gross deformities. Normal range of motion. Extremities: Warm and well perfused. No clubbing, cyanosis or edema. 3+ peripheral pulses bilaterally. Psychiatric: Normal mood and affect [facility] Medical History (Updated 11/12/23 @ 09:03 by BENTON Chaudhry) Microhematuria Rectal prolapse Multiple polyps of sigmoid colon Vitamin D deficiency GERD (gastroesophageal reflux disease) Elevated cholesterol HTN (hypertension) Colon cancer Surgical History Hx of colonoscopy History of partial colectomy History of surgical amputation of finger of left hand History of partial hysterectomy Social History Housing: Condominium Are you a primary care services manager to a significant other at home: No Do you presently have visiting nurse or other home services: No Comment: aware of trip hazard Patient Tobacco Use Status: Former Tobacco user Tobacco use type: Cigarette e-Cigarette/Vaping Use: Never Used service: No Current occupational status: retired Cognitive needs: No Hearing needs: No Vision needs: No Questionnaire Thrive Questionnaire Date Thrive assessed: 01/17/21 AUDIT C Alcohol Use Questionnaire (AUDIT-C) 2. How many drinks containing alcohol do you have on a typical day when you are drinking?: 1 or 2 3. How often do you have six or more drinks on one occasion?: Never Total Score: 0 MAYE-7 AMB Questionnaire MAYE-7 Date MAYE - 7 assessed: 11/06/22 Source: Developed by Drs. Janes Rutherford, Cristina Bender, Anirudh Lam and colleagues, with an educational julio from [employer] ([employer]). Physical exam (Primary Care) Vital Signs: Last Vital Signs Pulse 70 11/12/23 08:29 Resp 16 11/12/23 08:29 BP 142/80 H 11/12/23 08:32 Pulse Ox 96 11/12/23 08:29 Oxygen Delivery Method Room Air 11/12/23 08:29 BMI result Body Mass Index 31.0 Tobacco/Smoking Status: Tobacco use Status Tobacco use date assessed 07/04/23 11/12/23 08:31 Patient Tobacco Use Status Former Tobacco user 11/12/23 08:31 Tobacco use type Cigarette 11/12/23 08:31 e-Cigarette/Vaping Use Never Used 11/12/23 08:31 Thrive Assessment: Date of Thrive Assessment Date Thrive assessed 01/17/21 11/12/23 08:31 Results Reviewed Results Reviewed: Laboratory Tests 11/07/23 11/07/23 08:02 08:05 Creatinine 1.00 Estimated GFR 54 AST 20 ALT 18 Alkaline Phosphatase 91 Triglycerides 91 Cholesterol 170 LDL Cholesterol, Calc 89 HDL Cholesterol 63 TSH 2.33 Urine Blood Small (1+) H Ur Leukocyte Esterase Small (1+) H Urine RBC 3-5 H Urine Creatinine 221.78 Urine Microalbumin 9.0 Microalb/Creat Ratio 4.0 Coding Level of Care Code Est Pt Prev Care >65y(03771) Diagnoses Routine physical examination Z00.00 High cholesterol E78.00 Hypertension, essential I10 History of colon cancer Z85.038 Microhematuria R31.29 Assessment & Plan Assessment & Plan (1) Routine physical examination: Code(s): Z00.00 - Encounter for general adult medical examination without abnormal findings Plan: Patient is seen today for a routine physical. As part of this visit we reviewed the following issues, which are considered and essential part of preventative health in this age group: - Breast Cancer screening - Annual Medical Aides Teacher exam - Screening for colon cancer - Blood pressure screening - Cholesterol screening - Nutritional and exercise counseling - Education about skin cancer - Recommendations about immunizations - Recommendation of an eye exam - Screening for substance abuse (2) High cholesterol: Code(s): E78.00 - Pure hypercholesterolemia, unspecified Category: Medical Plan: LDL at goal. Continue statin. Recommended low-cholesterol diet. (3) Hypertension, essential: Code(s): I10 - Essential (primary) hypertension Category: Medical Plan: Suboptimal. Patient wishes to monitor at home and schedule follow up with PCP in 4-6 weeks for re-evaluation. (4) History of colon cancer: Code(s): Z85.038 - Personal history of other malignant neoplasm of large intestine Category: Medical Plan: Colonoscopy up-to-date. (5) Microhematuria: Code(s): R31.29 - Other microscopic hematuria Category: Medical Plan: Requested notes from [facility] Urogynecology. Patient does not recall specific evaluation for this. Reviewed differential including cystitis, nephrolithiasis, vaginal atrophy, malignancy. In some patients a cause for hematuria is not identifiable. We will repeat urinalysis and ordered culture. She does not have UTI symptoms, but she would like to wait on results to refer to Urology. Plan Follow up in 4-6 weeks with PCP for hypertension review. Orders: Orders UA w Microscopic Today R39.9 - Unspecified symptoms and signs involving the genitourinary system Urine Culture Today R39.9 - Unspecified symptoms and signs involving the genitourinary system
[2023-11-12 08:29] VITALS: BP 144/78; PULSE 70; RESP 16; O2SAT 96; BMI 31.0
[2023-11-12 08:32] VITALS: BP 142/80
== END 2023-11-12 09:11 | disposition home or self-care (01) ==
PROVIDERS: PCP Family Medicine; Visit Provider Physician Assistant Medical
DX: Z00.00 Encounter for general adult medical examination without abnormal findings (principal); E78.00 Pure hypercholesterolemia, unspecified; I10 Essential (primary) hypertension; Z85.038 Personal history of other malignant neoplasm of large intestine; R31.29 Other microscopic hematuria

== ENCOUNTER 2023-12-21 12:25 | Outpatient (REF) | payer MEDICARE, SELFPAY ==
--- NOTE | ~2023-12-21 | MM_ITS ---
EXAMINATION: MM SCREENING DIGITAL BREAST TOMOSYNTHESIS, BILATERAL CLINICAL INFORMATION: Screening. Asymptomatic. COMPARISON: Mammography: Comparison is made with available priors TECHNIQUE: Digital breast mammography with tomosynthesis is performed in both the craniocaudal and mediolateral oblique views along with computer-aided detection (CAD). FINDINGS: There are scattered areas of fibroglandular density (ACR BI-RADS breast composition Category b). There are no significant masses, abnormal calcifications, or other abnormalities. MM/MM tomosynthesis screening BI IMPRESSION: No mammographic evidence of malignancy. ASSESSMENT: BI-RADS BI-RADS 1 - Negative RECOMMENDATION: Routine annual mammography screening. 1 year F/U This examination should not preclude the clinical evaluation of a suspicious palpable abnormality. This patient's information was entered into a reminder system with a target due date for their next mammogram. Electronically signed by: Marlene Person DO 01/01/2024 10:57 AM KIMBERLEE
== END 2023-12-21 12:26 | disposition home or self-care (01) ==
LOC: HO.MAMMO 12:25
PROVIDERS: PCP Family Medicine; Visit Provider Family Medicine
DX: Z12.31 Encounter for screening mammogram for malignant neoplasm of breast (principal)
CPT/HCPCS: 77063; 77067

== ENCOUNTER → 2023-12-21 12:45 | Outpatient (BNV) | payer MEDICARE, SELFPAY | PROVIDERS: PCP Family Medicine; Visit Provider Internal Medicine | DX: Z12.31 Encounter for screening mammogram for malignant neoplasm of breast (principal) | CPT/HCPCS: 77063; 77067 ==

== ENCOUNTER 2023-12-31 14:23 | Outpatient (AMB) | payer MEDICARE, SELFPAY ==
--- NOTE | 2023-12-31 14:52 | MHC.PC.OV ---
Vital Signs 12/31/23 14:54 Height 5 ft 4 in Weight 180 lb 6 oz BMI 31.0 BP 128/70 Blood Pressure Location Lt brachial Position Sitting Pulse 68 Pulse Source Pulse Oximeter Pulse Oximetry (%) 97 Oxygen Delivery Method Room Air Intake Visit Reasons: Dr. 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 Her blood pressure was mildly elevated at her physical exam on 11/12/2023. Today her blood pressure is 128/70. She is taking hydrochlorothiazide 25 mg and losartan 100 mg daily. She follows a low-sodium diet. We discussed microhematuria at her physical. She had small amount of blood on her urinalysis 11/07/2023 and also on her urinalysis from 11/06/2022. I repeated it on 11/12/2023, and it was negative for blood. She is on baby aspirin. She denies gross hematuria, dysuria, frequency, flank pain, abdominal pain. Urine culture 11/12/2023 was negative for infection. She was a smoker, but she quit 40 years ago. ROS: Constitutional: No unexplained weight loss, fever, chills, fatigue or night sweats. Gastrointestinal: No anorexia, nausea, vomiting or diarrhea. No abdominal pain Genitourinary: No dysuria, hematuria, urinary frequency. Skin: No rash Physical exam: Constitutional: Alert, in no distress. Respiratory: Clear to auscultation. Cardiovascular: S1 S2 regular. No murmurs. Genitourinary: No costovertebral angle tenderness. Psychiatric: Normal mood and affect [facility] Medical History (Updated 11/12/23 @ 09:03 by BENTON Chaudhry) Microhematuria Rectal prolapse Multiple polyps of sigmoid colon Vitamin D deficiency GERD (gastroesophageal reflux disease) Elevated cholesterol HTN (hypertension) Colon cancer Surgical History Hx of colonoscopy History of partial colectomy History of surgical amputation of finger of left hand History of partial hysterectomy Social History (Updated 12/31/23 @ 14:54 by Francia Givens CMA) Housing: Condominium Are you a primary nurse behavioral health care to a significant other at home: No Do you presently have visiting nurse or other home services: No Alcohol intake: former Comment: aware of trip hazard Patient Tobacco Use Status: Former Tobacco user Tobacco use type: Cigarette e-Cigarette/Vaping Use: Never Used Use of substances other than those prescribed or required for medical reasons: No service: No Current occupational status: retired Cognitive needs: No Hearing needs: No Vision needs: No Questionnaire PHQ-9 Over the last 2 weeks, how often have you been bothered by any of the following problems? 1. Little interest or pleasure in doing things: not at all 2. Feeling down, depressed, or hopeless: not at all 3. Trouble falling or staying asleep, or sleeping too much: not at all 4. Feeling tired or having little energy: not at all 5. Poor appetite or overeating: not at all 6. Feeling bad about yourself - or that you are a failure or have let yourself or your family down: not at all 7. Trouble concentrating on things, such as reading the newspaper or watching television: not at all 8. Moving or speaking so slowly that other people could have noticed. Or the opposite - being so fidgety or restless that you have been moving around a lot more than usual: not at all 9. Thoughts that you would be better off or of hurting yourself in some way: not at all Total score: 0 Source: Developed by Drs. Janes Rutherford, Cristina Bender, Anirudh Lam and colleagues, with an educational julio from [employer]. Thrive Questionnaire Date Thrive assessed: 12/17/23 I am a: Patient What is your living situation today?: I have a steady place to live Within the past 12 months, did the food you bought not last and you didn't have the money to get more?: Never true Within the past 12 months, did you worry whether your food would run out before you got money to buy more?: Never true Do you have trouble paying for medicines?: No Do you have trouble getting transportation to medical appointments?: No Do you have trouble paying your heating and electricity bill?: No Do you have trouble taking care of your child, family member or friend?: No Do you have trouble with day-to-day activities such as bathing, preparing meals, shopping, managing finances, etc.?: No Are you currently unemployed and looking for a job?: No Are you interested in more education?: No Please select the resources that you would like help with: None Currently or been in a relationship where the following occur: No concerns reported THRIVE Score: 0 MAYE-7 AMB Questionnaire MAYE-7 Date MAYE - 7 assessed: 11/06/22 Source: Developed by Drs. Janes Rutherford, Cristina Bender, Anirudh Lam and colleagues, with an educational julio from [employer]. Physical exam (Primary Care) Vital Signs: Last Vital Signs Pulse 68 12/31/23 14:54 BP 128/70 12/31/23 14:54 Pulse Ox 97 12/31/23 14:54 Oxygen Delivery Method Room Air 12/31/23 14:54 BMI result Body Mass Index 31.0 Tobacco/Smoking Status: Tobacco use Status Tobacco use date assessed 07/04/23 12/31/23 14:52 Patient Tobacco Use Status Former Tobacco user 12/31/23 14:54 Tobacco use type Cigarette 12/31/23 14:54 e-Cigarette/Vaping Use Never Used 12/31/23 14:54 PHQ-9: PHQ-9 Score PHQ-9: Total score 0 12/31/23 14:52 Thrive Assessment: Date of Thrive Assessment Date Thrive assessed 12/17/23 12/31/23 14:52 Currently or been in a relationship where the following occur: No concerns reported Coding Level of Care Code Est Pt Level 4 (48537) Complex EM visit Add On [id number] Diagnoses Microhematuria R31.29 Hypertension, essential I10 Assessment & Plan Assessment & Plan (1) Microhematuria: Code(s): R31.29 - Other microscopic hematuria Category: Medical Plan: We discussed possible causes of microhematuria including vaginal atrophy, interstitial cystitis, nephrolithiasis and cancer. Recommended referral to Urology for possible cystoscopy and CT if indicated. Patient declines at this time. She also declined me ordering CT scan or even ultrasound for evaluation. Agreed to have urinalysis repeated in February. If microscopic blood persists she would have a CT scan done, but declines referral to Urology because she is not interested in cystoscopy. (2) Hypertension, essential: Code(s): I10 - Essential (primary) hypertension Category: Medical Plan: Controlled. Continue losartan and hydrochlorothiazide. Recommended low-sodium diet and avoidance of caffeine. Orders: Orders UA w Microscopic Today R39.9 - Unspecified symptoms and signs involving the genitourinary system Urine Culture Today R39.9 - Unspecified symptoms and signs involving the genitourinary system
[2023-12-31 14:54] VITALS: BP 128/70; PULSE 68; O2SAT 97; BMI 31.0
== END 2023-12-31 16:45 | disposition home or self-care (01) ==
PROVIDERS: PCP Family Medicine; Visit Provider Physician Assistant Medical
DX: R31.29 Other microscopic hematuria (principal); I10 Essential (primary) hypertension

== ENCOUNTER → 2023-12-31 14:23 | Outpatient (BNVA) | payer MEDICARE, SELFPAY | PROVIDERS: PCP Family Medicine; Visit Provider Physician Assistant Medical | DX: R31.29 Other microscopic hematuria (principal); I10 Essential (primary) hypertension; R39.9 Unspecified symptoms and signs involving the genitourinary system; Z79.899 Other long term (current) drug therapy | CPT/HCPCS: 96127; 99212 ==

== ENCOUNTER 2024-04-16 07:45 | Outpatient (REF) | payer MEDICARE, SELFPAY ==
[2024-04-16 12:24] LABS: Anion Gap 11 (12-20); Blood Urea Nitrogen 16 mg/dL (9-16); Calcium 9.1 mg/dL (8.4-10.2); Carbon Dioxide 29 mmol/L (22-29); Chloride 103 mmol/L (96-108); Estimated Glomerular Filt Rate 52; Glucose Random 87 mg/dL (60-115); Potassium 3.8 mmol/L (3.3-5.1); Sodium 139 mmol/L (135-145)
== END 2024-04-16 07:46 | disposition home or self-care (01) ==
LOC: HO.WFDLDS 07:45
PROVIDERS: Visit Provider Physician Assistant Medical
DX: R39.198 Other difficulties with micturition (principal)
CPT/HCPCS: 36415; 80048

== ENCOUNTER 2024-05-06 09:08 | Outpatient (REF) | payer MEDICARE, SELFPAY ==
--- NOTE | ~2024-05-06 | CT_ITS ---
EXAMINATION: CT ABDOMEN AND PELVIS WITHOUT AND WITH CONTRAST CLINICAL INFORMATION: Microscopic hematuria. COMPARISON: None available. TECHNIQUE: Multidetector volumetric imaging was performed of the abdomen and pelvis before and after the IV administration of 85 mL of Omnipaque 300 intravenous contrast. Sagittal and coronal reformatted images were obtained on the technologist's workstation. This CT examination was performed using dose optimization techniques as appropriate, variously including the following: *Automated exposure control *Adjustment of mA and/or kV according to patient size (this includes techniques or standardized protocols for targeted exams where dose is matched to indication/reason for exam; i.e. extremities or head) *Use of iterative reconstruction technique. DLP: 978 mGy centimeter. FINDINGS: LUNG BASES: No acute airspace disease. LIVER, GALLBLADDER, AND BILIARY TREE: Liver measures 15 cm. No focal mass. Portal veins, hepatic veins and intrahepatic portion of the IVC are patent. No pericholecystic fluid collection or gallbladder wall thickening. No intrahepatic or extrahepatic biliary ductal dilatation. PANCREAS: No focal lesion. No main pancreatic ductal dilatation. No peripancreatic fluid collection. Decreased volume of the parenchyma. SPLEEN: 9 cm. No focal mass. ADRENAL GLANDS: No nodular lesions. KIDNEYS AND URETERS: No nephrolithiasis. No hydronephrosis. Small cyst in the corticomedullary junction and parapelvic, right kidney. Normal urinary excretion of the contrast. Normal enhancement pattern of the renal parenchyma. BLADDER: Fluid-filled. GASTROINTESTINAL TRACT: Hiatal hernia, moderate to large volume. Abundant stool within the large intestine. Sutures in the ascending colon. Gas filled mildly prominent small bowel loops. No intestinal obstruction pattern. No pneumatosis intestinalis. No gross wall thickening. Collapsed appearance of the sigmoid colon. No ascites. No pneumoperitoneum. Nonspecific mesenteric edema pattern.. ABDOMINAL WALL: Small fat-containing umbilical and periumbilical hernias. LYMPH NODES: Prominent lymph nodes in the mesentery. VASCULAR: Calcified plaques throughout the abdominal aorta wall and iliac arteries the origin of the mesenteric arteries and main renal arteries. No aneurysm or dissection, abdominal aorta. Calcified plaques in the coronary arteries. Calcified plaques in the mitral valve.. PELVIC VISCERA: Postsurgical changes with absent uterus.. OSSEOUS STRUCTURES: Levoconvex curvature of the lumbar spine. Chondrocalcinosis at T9-10 and T10-11. There is a Schmorl nodes likely herniated disc at T10. Grade 1 anterolisthesis L4-5 on a degenerative basis. Spondylosis at L4-5 and L5-S1. CT/CT abdomen pelvis wo/w IV con IMPRESSION: No hydronephrosis or nephrolithiasis. Cystic lesions, right kidney. No gross renal mass. Hiatal hernia, moderate to large volume. Consider mesenteric panniculitis. Small fat-containing umbilical and periumbilical hernias. Multilevel thoracolumbar spondylosis resulting in grade 1 anterolisthesis L4-5. Coronary artery disease and atherosclerosis disease. Fleischner guidelines were followed. Electronically signed by: lElis Celestin MD 05/06/2024 10:40 AM EDT
[2024-05-06] MEDS: iohexoL 350 MG/ML 100 ML INFUS..BTL IV (10:05)
== END 2024-05-06 09:09 | disposition home or self-care (01) ==
LOC: HO.CT 09:08
PROVIDERS: PCP Family Medicine; Visit Provider Physician Assistant Medical
DX: R31.29 Other microscopic hematuria (principal)
CPT/HCPCS: 74178; Q9967

== ENCOUNTER → 2024-05-06 09:13 | Outpatient (BNV) | payer MEDICARE, SELFPAY | PROVIDERS: PCP Family Medicine; Visit Provider Radiology Diagnostic Radiology | DX: R31.29 Other microscopic hematuria (principal) | CPT/HCPCS: 74178 ==

== ENCOUNTER 2024-11-24 12:51 | Outpatient (REF) | payer MEDICARE, SELFPAY ==
[2024-11-24 18:37] LABS: Hematocrit 44.2 % (37.0-47.0); Hemoglobin 14.1 g/dl (12.0-16.0); Mean Corpuscular HGB Conc 31.9 g/dl (31.0-35.0); Mean Corpuscular Hemoglobin 30.1 pg (27.0-33.0); Mean Corpuscular Volume 94.2 fL (80.0-98.0); NRBC Abs Auto 0.000 X10*3/uL (0.0-0.012); NRBC Pct Auto 0.0 /100WBC (0.0-0.2); Platelet Count 235 X10*3/uL (160-400); Red Blood Count 4.69 X10*6/uL (4.20-5.50); White Blood Count 6.6 X10*3/uL (4.8-10.8)
[2024-11-24 18:56] LABS: Alanine Aminotransferase 29 U/L (0-31); Albumin Level 4.7 g/dL (3.5-5.0); Alkaline Phosphatase 90 U/L (39-117); Anion Gap 12 (12-20); Aspartate Amino Transferase 37 U/L (5-31); Blood Urea Nitrogen 16 mg/dL (9-16); Calcium 9.8 mg/dL (8.4-10.2); Carbon Dioxide 29 mmol/L (22-29); Chloride 103 mmol/L (96-108); Cholesterol 169 mg/dL (<200); Estimated Glomerular Filt Rate 51; HDL Cholesterol 66 mg/dL (>40); Potassium 3.8 mmol/L (3.3-5.1); Sodium 140 mmol/L (135-145); Total Protein 7.5 g/dL (6.5-8.0); Triglycerides 90 mg/dL (<150)
[2024-11-24 19:23] LABS: Folate 11.0 ng/mL (> or = 4.0); Vitamin B12 283 pg/mL (200-900)
== END 2024-11-24 12:52 | disposition home or self-care (01) ==
LOC: HO.WFDLDS 12:51
PROVIDERS: PCP Family Medicine; Visit Provider Nurse Practitioner Family
DX: Z00.00 Encounter for general adult medical examination without abnormal findings (principal); I12.9 Hypertensive chronic kidney disease with stage 1 through stage 4 chronic kidney disease, or unspecified chronic kidney disease; N18.30 Chronic kidney disease, stage 3 unspecified; K21.9 Gastro-esophageal reflux disease without esophagitis; K44.9 Diaphragmatic hernia without obstruction or gangrene; D12.6 Benign neoplasm of colon, unspecified; I70.90 Unspecified atherosclerosis; E78.00 Pure hypercholesterolemia, unspecified; L71.9 Rosacea, unspecified; G47.00 Insomnia, unspecified; M25.561 Pain in right knee; E55.9 Vitamin D deficiency, unspecified; R32 Unspecified urinary incontinence; R31.29 Other microscopic hematuria; Z71.89 Other specified counseling; Z13.1 Encounter for screening for diabetes mellitus; Z13.89 Encounter for screening for other disorder; Z66 Do not resuscitate; Z85.038 Personal history of other malignant neoplasm of large intestine; Z87.891 Personal history of nicotine dependence
CPT/HCPCS: 36415; 80053; 80061; 82043; 82306; 82570; 82607; 82746; 83036; 84443; 85027; 96127; 99212; 99497

== ENCOUNTER 2024-11-24 12:51 | Outpatient (AMB) | payer MEDICARE, SELFPAY ==
--- NOTE | 2024-11-24 13:00 | AM.OFFVISMDC ---
Intake Vital Signs 11/24/24 13:13 Height 5 ft 4 in Weight 179 lb BMI 30.7 BP 136/74 Blood Pressure Location Lt brachial Position Sitting Respiration 12 Pulse 72 Pulse Source Pulse Oximeter Temp 97.2 F Temp Source Oral Pulse Oximetry (%) 98 Oxygen Delivery Method Room Air Intake Visit Reasons: PE - see comments Intake Note: AWV. Manager [employer] Required: No Allergies No Known Allergies Allergy (Verified 11/24/24 13:48) Medication List - Last Reconciled 11/24/24 by MP ArroyoP- aspirin (Adult Aspirin Regimen) 81 mg PO DAILY atorvastatin 20 mg PO BEDTIME barium sulfate 2.1%(w/v),2.0%(w/w) Follow instructions per radiology. cholecalciferol (vitamin D3) 50 mcg PO DAILY estradiol 0.01%(0.1mg/gram) (Estrace) 1 g vaginal 2XW famotidine 20 mg PO DAILY PRN 90 days glucosamine sulfate 1,500 mg PO DAILY hydrochlorothiazide 25 mg PO DAILY losartan 100 mg PO DAILY Do you need a note to return to daycare/school/sports/work: No HPI HPI Comments History of Present Illness Details Here today for AWV. The Medicare Annual Wellness Visit (AWV) is a yearly appointment with a health professional to identify health risks and help reduce them and to create or update a personalized prevention plan. During a Medicare AWV, health professionals should also review any current opioid prescriptions, detect any cognitive impairment, and establish or update medical and family history. 74 y/o F with history of colon cancer, hypertension, vitamin-D deficiency, hyperlipidemia , urinary incont, GERD, microheme, renal cyst, CKD 3, hiatal hernia, rosacea SurgHx: Y FHx: Y SocHx: Y Health Maintenance: See scanned preventative medicine assessment with personalized health plan and screening schedule. Colon: 2023 *due for repeat this year! 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 Dietary/Nutrition/Exercise Edu provided: Y During the course of the visit the patient was educated and counseled about appropriate screening and preventative services. Patient instructions were provided to the patient in written or electronic format. I have reviewed and verified the above information. History of Present Illness The patient is a 74-year-old female presenting for an annual Medicare wellness visit and management of chronic conditions. Right Knee Pain: - Onset: May, post-fall. - Tightness when stretched or after sitting. - No acute pain or deterioration. Insomnia: - Supplement from [employer] used. - 3-4 hours of continuous sleep followed by restlessness. - Occasional Aleve use improves sleep. - Son uses traz. wonders if she can try this Rosacea: - Present with visible facial veins. - History of topical metronidazole usage. - active w/ Derm HTN well contrlled on current meds HLD on statin, due for labs. Hiatal hernia w/ GERD. ON pepcid. Past Surgical History - Previous rectal prolapse surgery (details vague). - Colectomy for colon cancer, followed by 12 chemotherapy treatments. Social History - No current assistance with daily activities. - Walks daily for exercise. - Non-smoker for over 40 years. - Consumes alcohol infrequently. - Engaged in [employer] activities. Health Maintenance - Bone density assessment completed in 2022; results normal - Mammogram scheduled for December. - A1c tested at 5.4%, indicating normal levels. - Up to date with vaccinations per patient?s understanding. - Discussions around colonoscopy due in October with Dr. Alarcon. - Encouraged cholesterol screening and non-fasting blood work today. Review of Systems - General: Reports issues with sleep. - Musculoskeletal: Reports right knee tightness. - Skin: Reports redness over nose; denies active symptoms. - Urinary: Reports longstanding urinary incontinence. - Gastrointestinal: Reports occasional GERD symptoms, manages with famotidine. Physical Exam General: Well developed, well nourished, in no acute distress. Appears stated age. Head: Normocephalic, atraumatic. Eyes: Pupils are equal, round and reactive to light and accommodation. Conjunctivae are clear. Scleras nonicteric bilat. Vision grossly normal. Ears: TMs clear AU, EACS WNL Nose: Patent, without discharge. Red nose with visible veins, consistent with rosacea. Neck: No carotid bruit bilat. Supple, no adenopathy or thyromegaly. Breast: Edu on SBE Lungs: Clear to auscultation bilaterally. No rales, rhonchi or wheeze noted. Good air flow in all olson. Heart: Regular rate and rhythm. No murmurs, click, rubs or gallops are noted. EKG shows normal sinus rhythm. Abdomen: Bowel sounds present in all quadrants. The abdomen is soft, nontender, with no masses or organomegaly noted. No hernias are noted. : Deferred. Reviewed recommendations for routine CRITICAL SYSTEMS TECHNICIAN. Pulses: Peripheral pulses are equal and palpable bilaterally. Extremities: No clubbing, cyanosis nor edema is noted. FROM, normal strength L knee. No redness or edema. + crepitus. Unable to reproduce pain but reports it medially. Neurologic: Gait and station normal. Cranial Nerves 2-12 intact. Motor strength grossly symmetrical and intact. No sensory loss. Balance normal. Skin: No rashes, ulcers, or lesions noted. Turgor is good. Skin color is good. Hair and nails are without abnormalities. Psych: Normal eye contact, affect and mood appropriate, and normal interactions. Patient is alert and appropriate to context. Results Pending Discussion Notes During our visit, we discussed the management of the patient's chronic conditions, including hypertension, hyperlipidemia, and GERD. I confirmed that the patient's current medications for these issues are appropriate, and there have been no adverse reactions. For her right knee pain, I provided options for physical therapy or an orthopedic consult for further evaluation, but the patient opted to observe her symptoms further, as they have not worsened. We discussed potential strategies for her insomnia, considering trialing trazodone for sleep, advising against mixing with existing OTC sleep aids. Rosacea was reviewed, and I suggested the possibility of dermatology consultation for laser treatment, which is not covered by insurance. For health maintenance, we reviewed her screening tests, with a reminder about the colonoscopy. Explained benefits of regular check-ups and maintaining current routines to manage osteoporosis, including exercises and nutritional consideration. We discussed updating her EHR drug list with estradiol cream and provided anticipatory guidance. Patient was given time to ask questions. All questions were answered to their satisfaction. Assessment and Plan 1. Menopause - Continue Vitamin D 2. Essential Hypertension - Maintain current medication regimen. 3. Hyperlipidemia - Continue atorvastatin, aspirin. 4. Microheme annual Uro fu 5. Chronic GERD & hiatal hernia - Continue famotidine. 6. UTD on Health Maintenance 7. Right Knee Pain - Observe; ortho/physical therapy if needed. 8. Insomnia - trazodone trial. 25-50mg PRN do not mix w/ otc sleep aides. 9. Rosacea - Dermatology consult advised. 10. Urinary Incontinence - No change in management. Patient Instructions - Take all medications as prescribed. - Walk daily for exercise. - Continue all meds - Monitor right knee symptoms, report any changes. - Trial trazodone for sleep; stop OTC sleep aids if starting. - Schedule and attend mammogram and cholesterol blood tests. - Follow up with Dr. Alarcon's office for colonoscopy scheduling. I have sent a coordinate message to her office - Explore dermatology options for rosacea treatment if desired. - RTO 1 year AWV sooner PRN Consent The patient understood and agreed to consider a trial of trazodone for insomnia management, with the understanding of its benefits and non-addictive nature. Risks and benefits, including the avoidance of mixing with other sleep medications, were discussed. The patient consented verbally, understanding she could cease usage if any issues arise. The patient was advised about potential dermatology treatments for rosacea, including laser procedures not covered by insurance, with a suggestion to inquire about free consultations for non-covered options. Patient was informed and verbally consented to the use of an ambient scribe for clinic note documentation during this visit. An additional 30 minutes was spent addressing the problem(s) noted at todays visit. This includes time spent before the visit reviewing the chart, time spent during the visit, and time spent after the visit on documentation reviewing laboratory results, diagnostic imaging, medications, performing a medically necessary evaluation, counseling on diagnoses, care coordination, ordering appropriate tests, ordering appropriate medications, review of tests performed by other providers, reporting test results with the patient, communication with other healthcare providers. [facility] Medical History (Updated 11/24/24 @ 14:29 by [facility] Atherosclerosis Colon cancer Elevated cholesterol GERD (gastroesophageal reflux disease) Hiatal hernia HTN (hypertension) Microhematuria Multiple polyps of sigmoid colon Periumbilical hernia Rectal prolapse Renal cyst, right Umbilical hernia Vitamin D deficiency Surgical History History of partial colectomy History of partial hysterectomy History of surgical amputation of finger of left hand Hx of colonoscopy Social History (Updated 12/31/23 @ 14:54 by Francia Givens CMA) Housing: Condominium Are you a primary intensive care nurse to a significant other at home: No Do you presently have visiting nurse or other home services: No Alcohol intake: former Comment: aware of trip hazard Patient Tobacco Use Status: Former Tobacco user Tobacco use type: Cigarette e-Cigarette/Vaping Use: Never Used service: No Current occupational status: retired Cognitive needs: No Hearing needs: No Vision needs: No Questionnaire Medicare Wellness Checkup What [age] What gender do you identify with?: female During the past 4 weeks, how much have you been bothered by emotional problems such as feeling anxious, depressed, irritable, sad or downhearted, and blue?: not at all During the past 4 weeks, has your physical & emotional health limited your social activities with family, friends, neighbors, or groups?: not at all During the past 4 weeks, how much bodily pain have you generally had?: no pain During the past 4 weeks, was someone available to help you if you needed & wanted help?: yes, as much as I wanted During the past 4 weeks, what was the hardest physical activity you could do for at least 2 minutes?: moderate Can you get to places out of walking distance without help? (For eg., can you travel alone on buses, taxis or drive your car?): Yes Can you go shopping for groceries or clothes without someone's help?: Yes Can you prepare your own meals?: Yes Can you do your housework without help?: Yes Because of any health problems, do you need the help of another person with your personal care needs such as eating, bathing, dressing or getting around the house?: No Can you handle your own money without help?: Yes During the past 4 weeks, how would you rate your health in general?: excellent During the past 4 weeks how have things been going for you?: very well; could hardly better Are you having difficulties driving your car?: no Do you always fasten your seat belt when you are in a car?: yes, usually During past 4 weeks, have you been bothered by the following: never: Falling or dizzy when standing up, Sexual problems?, Trouble eating well?, Teeth or denture problems?, Problems using the telephone? and Tiredness or fatigue? Have you fallen 2 or more times in the past year?: No Are you afraid of falling?: No Are you a smoker?: no During the past 4 weeks, how many drinks of wine, beer, or other alcoholic beverages did you have?: no alcohol at all Do you exercise for about 20 minutes 3 or more times a week?: yes, most of the time Have you been given information to help with the following?: no: Hazards in your house that might hurt you? and no: Keeping track of your medications? How often do you have trouble taking medicines the way you have been told to take them?: I always take medicine as prescribed How confident are you that you can control & manage most of your health problems?: very confident What is your race?: White Activity of Daily Living Bathing - sponge bath, tub bath or shower: receives no assistance (gets in/out by self, if usual bathing means Dressing - getting clothes from closets & drawers, including inner/outer garments & fasteners.: gets clothes & gets completely dressed without help Toileting - going to the 'toilet room' for urine/bowel elimination & cleaning self/arranging clothes: goes to toilet room, cleans self, arranges clothes without help Transfer: moves in & out of bed and chair without help (may use support object) Continence: has occasional 'accidents' Feeding: feeds self without help Total Score: 0 Information obtained from: patient Using telephone: independent Traveling: independent Shopping: independent Preparing meals: independent Housework: independent Taking medicine: independent Managing money: independent PHQ-9 Over the last 2 weeks, how often have you been bothered by any of the following problems? 1. Little interest or pleasure in doing things: not at all 2. Feeling down, depressed, or hopeless: not at all 3. Trouble falling or staying asleep, or sleeping too much: not at all 4. Feeling tired or having little energy: not at all 5. Poor appetite or overeating: not at all 6. Feeling bad about yourself - or that you are a failure or have let yourself or your family down: not at all 7. Trouble concentrating on things, such as reading the newspaper or watching television: not at all 8. Moving or speaking so slowly that other people could have noticed. Or the opposite - being so fidgety or restless that you have been moving around a lot more than usual: not at all 9. Thoughts that you would be better off or of hurting yourself in some way: not at all Total score: 0 Depression Screening Interpretation: Negative Depression Screening Done: Yes 51498 - PHQ-9 Billing: Yes Source: Developed by Drs. Janes Rutherford, Cristina Bender, Anirudh Lam and colleagues, with an educational julio from [employer]. Physical Exam Vital Signs: Last Vital Signs Temp 97.2 F 11/24/24 13:13 Pulse 72 11/24/24 13:13 Resp 12 11/24/24 13:13 BP 136/74 11/24/24 13:13 Pulse Ox 98 11/24/24 13:13 Oxygen Delivery Method Room Air 11/24/24 13:13 BMI result Body Mass Index 30.7 Office Procedures EKG [id number], Complete Vision Screening Right Eye: 20/25 Left Eye: 20/25 Bilateral: 20/25 Color: Pass 87106 - Vision Screening Results AMB Hemoglobin A1c AMB Hemoglobin A1c 5.4 % Last Edit by Rico Caraballo MA on 11/24/24 13:25 Results Reviewed Results Reviewed: Laboratory Last Values Hgb A1c (Clinic) 5.4 % (4.0-6.0) 11/24/24 12:59 CT/CT abdomen pelvis wo/w IV con IMPRESSION: No hydronephrosis or nephrolithiasis. Cystic lesions, right kidney. No gross renal mass. Hiatal hernia, moderate to large volume. Consider mesenteric panniculitis. Small fat-containing umbilical and periumbilical hernias. Multilevel thoracolumbar spondylosis resulting in grade 1 anterolisthesis L4-5. Coronary artery disease and atherosclerosis disease. Fleischner guidelines were followed. Electronically signed by: Ellis Celestin MD 05/06/2024 10:40 AM EDT Assessment & Plan Assessment & Plan (1) Encounter for annual wellness visit (AWV) in Medicare patient: Onset Date: ~11/24/24 Code(s): Z00.00 - Encounter for general adult medical examination without abnormal findings (2) Rosacea: Code(s): L71.9 - Rosacea, unspecified (3) Insomnia: Code(s): G47.00 - Insomnia, unspecified Qualifiers: Insomnia type: unspecified Qualified Code(s): G47.00 - Insomnia, unspecified (4) Right knee pain: Code(s): M25.561 - Pain in right knee Qualifiers: Chronicity: acute Qualified Code(s): M25.561 - Pain in right knee (5) High cholesterol: Code(s): E78.00 - Pure hypercholesterolemia, unspecified (6) Hypertension, essential: Code(s): I10 - Essential (primary) hypertension (7) Atherosclerosis: Code(s): I70.90 - Unspecified atherosclerosis (8) Laboratory exam ordered as part of routine general medical examination: Code(s): Z00.00 - Encounter for general adult medical examination without abnormal findings (9) DNR (do not resuscitate): Code(s): Z66 - Do not resuscitate (10) ACP (advance care planning): Code(s): Z71.89 - Other specified counseling (11) Vitamin D deficiency: Code(s): E55.9 - Vitamin D deficiency, unspecified (12) Chronic GERD: Code(s): K21.9 - Gastro-esophageal reflux disease without esophagitis (13) Hiatal hernia: Code(s): K44.9 - Diaphragmatic hernia without obstruction or gangrene (14) Serrated polyposis syndrome: Comment: >20 polyps in past at [facility], partial colectomy r/t adenocarcinoma. Code(s): D12.6 - Benign neoplasm of colon, unspecified (15) Incontinence in female: Code(s): R32 - Unspecified urinary incontinence (16) Renal cyst, right: Code(s): N28.1 - Cyst of kidney, acquired (17) Microhematuria: Code(s): R31.29 - Other microscopic hematuria (18) History of colon cancer: Code(s): Z85.038 - Personal history of other malignant neoplasm of large intestine (19) CKD (chronic kidney disease) stage 3, GFR 30-59 ml/min: Code(s): N18.30 - Chronic kidney disease, stage 3 unspecified Qualifiers: Chronic kidney disease stage 3 subtype: stage 3a (GFR 45-59) Qualified Code(s): N18.31 - Chronic kidney disease, stage 3a Plan . Orders: Orders Lipid Panel Today E78.00 - Pure hypercholesterolemia, unspecified, I10 - Essential (primary) hypertension, I70.90 - Unspecified atherosclerosis, Z00.00 - Encounter for general adult medical examination without abnormal findings Complete Blood Count no Diff Today E78.00 - Pure hypercholesterolemia, unspecified, I10 - Essential (primary) hypertension, I70.90 - Unspecified atherosclerosis, Z00.00 - Encounter for general adult medical examination without abnormal findings Microalbumin, Random (w Creat) Today E78.00 - Pure hypercholesterolemia, unspecified, I10 - Essential (primary) hypertension, I70.90 - Unspecified atherosclerosis, Z00.00 - Encounter for general adult medical examination without abnormal findings AMB Hemoglobin A1c Today Z13.9 - Encounter for screening, unspecified Comprehensive Met. Panel Today E78.00 - Pure hypercholesterolemia, unspecified, I10 - Essential (primary) hypertension, I70.90 - Unspecified atherosclerosis, Z00.00 - Encounter for general adult medical examination without abnormal findings TSH reflex Free T4 Today E78.00 - Pure hypercholesterolemia, unspecified, I10 - Essential (primary) hypertension, I70.90 - Unspecified atherosclerosis, Z00.00 - Encounter for general adult medical examination without abnormal findings Vitamin B12 and Folate Today E78.00 - Pure hypercholesterolemia, unspecified, I10 - Essential (primary) hypertension, I70.90 - Unspecified atherosclerosis, Z00.00 - Encounter for general adult medical examination without abnormal findings Vitamin D 25-OH Total Today E78.00 - Pure hypercholesterolemia, unspecified, I10 - Essential (primary) hypertension, I70.90 - Unspecified atherosclerosis, Z00.00 - Encounter for general adult medical examination without abnormal findings Medications: New trazodone 25 mg (1/2 x 50 mg) PO BEDTIME PRN 45 tabs 2RF sleep Discontinued barium sulfate 2.1%(w/v),2.0%(w/w) Discontinued Reason: Patient Completed Course Follow instructions per radiology. 900 mL 0RF Patient Instructions: Health screenings for women You should visit your health care provider from time to time, even if you are healthy. The purpose of these visits is to: Screen for medical issues Assess your risk for future medical problems Encourage a healthy lifestyle Update vaccinations and other preventive care services Help you get to know your provider in case of an illness Information Even if you feel fine, you should still see your provider for regular checkups. These visits can help you avoid problems in the future. For example, the only way to find out if you have high blood pressure is to have it checked regularly. High blood sugar and high cholesterol levels also may not have any symptoms in the early stages. A simple blood test can check for these conditions. There are specific times when you should see your provider or receive specific health screenings. The [place] Preventive Services Task Force publishes a list of recommended screenings. Below are screening guidelines for women ages 18 to 39. BLOOD PRESSURE SCREENING Your blood pressure should be checked at least once every 3 to 5 years if: Your blood pressure is in the normal range (top number less than 120 mm Hg and bottom number less than 80 mm Hg) You don't have risk factors for high blood pressure Ask your provider if you need your blood pressure checked more often if: The top number is 120 to 129 mm Hg or the bottom number is 70 to 79 mm Hg You have diabetes, heart disease, kidney problems, are overweight, or have certain other health conditions You have a first-degree relative with high blood pressure You are Black You had high blood pressure during a If the top number is 130 mm Hg or greater or the bottom number is 80 mm Hg or greater, this is considered stage 1 hypertension. Schedule an appointment with your provider to learn how you can reduce your blood pressure. Watch for blood pressure screenings in your area. Ask your provider if you can stop in to have your blood pressure checked. BREAST CANCER SCREENING Experts do not agree about the benefits of breast self-exams in finding breast cancer or saving lives. Talk to your provider about what is best for you. A screening mammogram is not recommended for most women under age 40. Your provider may discuss and recommend mammograms, MRI scans, or ultrasounds if you have an increased risk for breast cancer, such as: A mother or sister who had breast cancer at a young age (most often starting screening earlier than the age the close relative was diagnosed) You carry a high-risk genetic marker CERVICAL CANCER SCREENING Cervical cancer screening should start at age 21 years unless your provider advises otherwise. After the first test: Women ages 21 through 29 should have a Pap test every 3 years. Exoprts do not agree on whether HPV testing is recommended for this age group. Women ages 30 through 65 should be screened with either a Pap test every 3 years or the HPV test every 5 years or both tests every 5 years (called cotesting ). Women who have been treated for precancer (cervical dysplasia) should continue to have Pap tests for 20 years after treatment or until age 65, whichever is longer. If you have had your uterus and cervix removed (total hysterectomy), and you have not been diagnosed with cervical cancer or precancer (high grade cervical neoplasia), you do not need cervical cancer screening. CHOLESTEROL SCREENING Cholesterol screening should begin at: Age 45 for women with no known risk factors for coronary heart disease Age 20 for women with known risk factors for coronary heart disease Repeat cholesterol screening should take place: Every 5 years for women with normal cholesterol levels More often if changes occur in lifestyle (including weight gain and diet) More often if you have diabetes, heart disease, kidney problems, or certain other conditions DIABETES SCREENING You should be screened for diabetes starting at age 35 and then repeated every 3 years if you have no risk factors for diabetes. Screening may need to start earlier and be repeated more often if you have other risk factors for diabetes, such as: You have a first degree relative with diabetes. You are overweight or have obesity. You have high blood pressure, prediabetes, or a history of heart disease. Screening for diabetes should be done if you are planning to become and you are overweight and have other risk factors such as high blood pressure. DENTAL EXAM Go to the dentist once or twice every year for an exam and cleaning. Your dentist will evaluate if you need more frequent visits. EYE EXAM Have an eye exam every 5 to 10 years before age 40. If you have vision problems, have an eye exam every 2 years or more often if recommended by your provider. You should have an eye exam that includes an examination of your retina (back of your eye) at least every year if you have diabetes. IMMUNIZATIONS Commonly needed vaccines include: Flu shot: get one every year. COVID-19 vaccine: ask your provider what is best for you. Tetanus-diphtheria and acellular pertussis (Tdap) vaccine: have one at or after age 19 as one of your tetanus-diphtheria vaccines if you did not receive it as an adolescent. Tetanus-diphtheria: have a booster (or Tdap) every 10 years. Varicella vaccine: receive 2 doses if you never had chickenpox or the varicella vaccine. Hepatitis B vaccine: receive 2, 3, or 4 doses, depending on your exact circumstances. Measles, mumps, and rubella (MMR) vaccine: receive 1 to 2 doses if you are not already immune to MMR. Your provider can tell you if you are immune. Ask your provider about the human papillomavirus (HPV) vaccine if: You have not received the HPV vaccine in the past You have not completed the full vaccine series (you should catch up on this shot) Ask your provider if you should receive other immunizations if you have certain health problems that increase your risk for some diseases such as pneumonia. INFECTIOUS DISEASE SCREENING Women who are sexually active should be screened for chlamydia and gonorrhea up until age 25. Women 25 years and older should be screened for chlamydia and gonorrhea if at high risk. Screening for hepatitis C: All adults ages 18 to 79 should get a one-time test for hepatitis C. people should be screened at every . Screening for human immunodeficiency virus (HIV): All people ages 15 to 65 should get a one-time test for HIV. Depending on your lifestyle and medical history, you may also need to be screened for infections such as syphilis and HIV, as well as other infections. PHYSICAL EXAM All adults should visit their provider from time to time, even if they are healthy. The purpose of these visits is to: Screen for disease Assess your risk of future medical problems Encourage a healthy lifestyle Update your vaccinations and other preventive care services Maintain a relationship with a provider in case of an illness Your height, weight, and BMI should be checked at every exam. During your exam, your provider may ask you about: Depression and anxiety Diet and exercise Alcohol and tobacco use Safety issues, such as using seat belts, smoke detectors, and intimate partner violence Your medicines and risk for interactions SKIN SELF-EXAM Your provider may check your skin for signs of skin cancer, especially if you're at high risk, such as if you: Have had skin cancer before Have close relatives with skin cancer Have a weakened immune system OTHER SCREENING Talk with your provider about colon cancer screening if you have a strong family history of colon cancer or polyps, or if you have had inflammatory bowel disease or polyps yourself. Routine bone density screening of women under 40 is not recommended. Quality Reporting (2020) Adult ([facility] 138/03/29/68) Smoking risk assessment performed?: Yes Patient Tobacco Use Status: Former Tobacco user Depression screening performed: Yes Screen Results: Yes Negative screen Systolic BP not done?: No Diastolic BP not done?: No BMI screening not done: No Sexual Activity Screening ([facility] 153) Sexually active?: Yes Immunizations (CMS 147, 117) Annual Influenza Vaccine: Yes Measles Antibody Test: No Mumps Antibody Test: No Rubella Antibody Test: No Varicella Antibody Test: No Anti Hepatitis A IgG Antigen test: No Anti Hepatitis B Virus Surface Ab test: No Fall Risk Screening ([facility] 139) Last assessed Fall Risk: 11/24/24 Fall risk assessment: No Falls in past year Dementia Assessment ([facility] 149) Cognitive assessment recorded: Yes Assessment of cognition with standardized tool: Yes Depression/Bipolar (159/160/161/177) PHQ-9: Total score: 0 Ophthalmol:Cataracts Visual Acuity (133) Visual acuity exam performed: Yes (see results) Coding Level of Care Code Medicare Subsequent (G0439) Est Pt Level 4 (20009) Diagnoses Encounter for annual wellness visit (AWV) in Medicare patient Z00.00 Rosacea L71.9 Insomnia, unspecified type G47.00 Insomnia type: unspecified Acute pain of right knee M25.561 Chronicity: acute High cholesterol E78.00 Hypertension, essential I10 Atherosclerosis I70.90 Laboratory exam ordered as part of routine general medical examination Z00.00 DNR (do not resuscitate) Z66 ACP (advance care planning) Z71.89 Vitamin D deficiency E55.9 Chronic GERD K21.9 Hiatal hernia K44.9 Serrated polyposis syndrome D12.6 Incontinence in female R32 Renal cyst, right N28.1 Microhematuria R31.29 History of colon cancer Z85.038 Stage 3a chronic kidney disease N18.31 Chronic kidney disease stage 3 subtype: stage 3a (GFR 45-59) CPT Codes Advance Care Planning - Time spent: 16-45 minutes ([id number]) EKG - CPT: 08308-[id number], Complete ([id number]) Vision Screening - Vision Screenin - Vision Screening ([id number]) Additional Codes PHQ-9 - 47739 - PHQ-9 Billing: Yes ([id number]) Advance Care Planning Advance Care Planning discussion: Exists, not on file Date of discussion: 11/24/24 Who was present: self Forms completed: Health Care Proxy, MOLST, Comfort care/DNR and Living will Time spent: 16-45 minutes Actual minutes spent: 16
[2024-11-24 13:13] VITALS: BP 136/74; PULSE 72; RESP 12; TEMP 36.2; O2SAT 98; BMI 30.7
== END 2024-11-24 14:20 | disposition home or self-care (01) ==
LOC: HO.HMCFM 12:51
PROVIDERS: PCP Family Medicine; Visit Provider Nurse Practitioner Family
DX: Z00.00 Encounter for general adult medical examination without abnormal findings (principal); I12.9 Hypertensive chronic kidney disease with stage 1 through stage 4 chronic kidney disease, or unspecified chronic kidney disease; N18.31 Chronic kidney disease, stage 3a; G47.00 Insomnia, unspecified; M25.561 Pain in right knee; L71.9 Rosacea, unspecified; E78.00 Pure hypercholesterolemia, unspecified; I70.90 Unspecified atherosclerosis; Z66 Do not resuscitate; E55.9 Vitamin D deficiency, unspecified; K21.9 Gastro-esophageal reflux disease without esophagitis; K44.9 Diaphragmatic hernia without obstruction or gangrene

== ENCOUNTER 2024-12-25 12:02 | Outpatient (REF) | payer MEDICARE, SELFPAY ==
--- NOTE | ~2024-12-25 | MM_ITS ---
EXAMINATION: MM SCREENING DIGITAL BREAST TOMOSYNTHESIS, BILATERAL CLINICAL INFORMATION: Screening. Asymptomatic. COMPARISON: Comparison made to multiple prior, most recent December 21, 2023, and most remote November 28, 2017. TECHNIQUE: Digital breast tomosynthesis is performed in mediolateral oblique and craniocaudal views along with computer-aided detection (CAD). Synthesized 2D images are generated from the tomosynthesis. FINDINGS: BREAST COMPOSITION: There are scattered areas of fibroglandular density. RIGHT BREAST: -Approximately 0.6 cm focal asymmetry in the upper outer quadrant at about 7-8 cm from the nipple (MLO 27/89, CC 33/75). -Approximately 0.6 cm asymmetry in the medial breast at 9 cm from the nipple on the CC view (CC 16/75), without definite correlate on the MLO view. - No suspicious calcifications are seen. LEFT BREAST: No significant masses, suspicious calcifications or other abnormalities are seen. MM/MM tomosynthesis screening BI IMPRESSION: RIGHT BREAST: -0.6 cm focal asymmetry in the upper outer quadrant 7 x 8 cm from the nipple. -0.6 cm asymmetry in the medial breast at 9 cm from the nipple on the CC view. LEFT BREAST: Negative, no mammographic evidence of malignancy. Normal interval follow-up is recommended in 12 months. ASSESSMENT: BI-RADS: Category 0: Incomplete - Need additional Imaging Evaluation RECOMMENDATION: 1. Additional views of the right breast 2. Targeted ultrasound if warranted after review of the additional views. 3. Radiology department staff will contact the patient for additional imaging. FOLLOW-UP: Additional Imaging required This examination should not preclude the clinical evaluation of a suspicious palpable abnormality. This patient's information was entered into a reminder system with a target due date for their next mammogram. Electronically signed by: Gabriela Lopez MD 12/29/2024 10:02 AM KIMBERLEE
== END 2024-12-25 12:03 | disposition home or self-care (01) ==
LOC: HO.MAMMO 12:02
PROVIDERS: PCP Family Medicine; Visit Provider Family Medicine
DX: Z12.31 Encounter for screening mammogram for malignant neoplasm of breast (principal)
CPT/HCPCS: 77063; 77067

== ENCOUNTER → 2024-12-25 12:30 | Outpatient (BNV) | payer MEDICARE, SELFPAY | PROVIDERS: PCP Family Medicine; Visit Provider Radiology Body Imaging | DX: Z12.31 Encounter for screening mammogram for malignant neoplasm of breast (principal) | CPT/HCPCS: 77063; 77067 ==

== ENCOUNTER 2025-01-23 08:34 | Outpatient (REF) | payer MEDICARE, SELFPAY ==
--- NOTE | ~2025-01-23 | MM_ITS ---
EXAMINATION: MM DIAGNOSTIC DIGITAL BREAST TOMOSYNTHESIS, RIGHT Right limited ultrasound. CLINICAL INFORMATION: Call back from screening for right breast asymmetries. COMPARISON: Mammography: Priors on PACS. TECHNIQUE: Digital breast tomosynthesis is performed in both the craniocaudal and mediolateral oblique views along with computer-aided detection (CAD). Synthesized 2D images are generated from the tomosynthesis. FINDINGS: There are scattered areas of fibroglandular density. Right: Focal asymmetry upper outer quadrant persist on additional imaging projections. There is architectural distortion in the lower inner quadrant posterior depth. No suspicious calcifications or other abnormal findings. Targeted color Doppler ultrasound scanning in the lower inner quadrant in straight normal fibroglandular breast tissue. There is no sonographic abnormal finding. Targeted color Doppler ultrasound in the upper outer quadrant demonstrates at 9:00 7 cm from the nipple an oval hypoechoic solid mass versus complicated cyst measuring 5 x 3 x 6 mm and at 8:00 7 cm from the nipple hypoechoic oval circumscribed solid mass versus complicated cyst measuring 4 x 4 x 3 mm . MM/MM tomosynthesis added views R IMPRESSION: Right: 1. Architectural distortion in the lower inner breast posterior depth without sonographic correlate. Recommend stereotactic core needle biopsy at this time for confirmation. The findings and recommendations were discussed with the patient the procedure be scheduled. 2. Solid masses versus complicated cysts in the upper outer breast 9:00 7 cm from the nipple and 8:00 7 cm from the nipple. Management will be pending biopsy of the above area to include at least a six-month follow-up for further evaluation of stability if the above is benign. ASSESSMENT: BI-RADS Category 4: Suspicious RECOMMENDATION: Biopsy recommended Results were provided to the patient at time of visit by the technologist. Electronically signed by: Marlene Person DO 01/23/2025 11:34 AM EST
--- OUTSIDE RECORDS SUMMARY | 2025-01-23 08:47 | XMS_ITS | Clinical Summary ---
Author Organization [facility] Address [address] [place] [address] Phone Care Team Providers Care Records Tech Name Role Phone Arti Serrano Primary Care Provider [phone] Allergies No known active allergies Medications atorvastatin (LIPITOR) 20 mg tablet Take 1 tablet (20 mg total) by mouth. at bedtime. 07/20/2024 Active famotidine (PEPCID) 20 mg tablet TAKE 1 TABLET DAILY NEEDED FOR ACID REFLUX 06/11/2024 Active hydroCHLOROthiaz celeste (HYDRODIURIL) 25 mg tablet Take 1 tablet (25 mg total) by mouth 1 (one) time each day. 06/11/2024 Active losartan (COZAAR) 100 mg tablet Take 1 tablet (100 mg total) by mouth 1 (one) time each day. 06/11/2024 Active glucosamine-charlene droitin 500-400 mg tablet Take 1 tablet by mouth 3 (three) times a day. Active aspirin 81 mg chewable tablet Chew 1 tablet (81 mg total) 1 (one) time each day. Active cholecalciferol (VITAMIN D-3) 25 mcg (1,000 unit) tablet Take 1 tablet (1,000 Units total) by mouth 1 (one) time each day. Active Social History Tobacco Use Types Packs/Day Years Used Date Smoking Tobacco: Never Assessed Comments Unknown Sex and Gender Information Value Date Recorded Sex Assigned at Not on file Legal Sex Female 2:16 PM EDT Gender Identity Female 07/29/2024 8:44 AM EDT Sexual Orientation Not on file Last Filed Vital Signs Vital Sign Reading Time Taken Comments Blood Pressure 168/91 07/29/2024 10:35 AM EDT Pulse 77 07/29/2024 10:35 AM EDT Temperature - - Respiratory Rate - - Oxygen Saturation - - Inhaled Oxygen Concentration - - Weight 81.4 kg (179 lb 6.4 oz) 07/29/2024 10:35 AM EDT Height 162.6 cm (5' 4 ) 07/29/2024 10:35 AM EDT Body Mass Index 30.79 07/29/2024 10:35 AM EDT Plan of Treatment Health Maintenance Due Date Last Done Comments DTaP,Tdap,and Td Vaccines (1 - Tdap) 02/07/1969 Pneumococcal Vaccine: 50+ Years (2 of 2 - PCV) 02/24/2022 02/24/2021 Depression Screening 02/06/2024 Falls Risk Assessment 06/27/2024 Hepatitis C Screening 06/27/2024 Medicare Annual Wellness Visit 06/27/2024 Osteoporosis Screening (Bone Density Screening) 06/27/2024 Social Influencers of Health Screening 06/27/2024 COVID-19 Vaccine ( season) 2024 11/25/2023, 11/24/2022, 12/14/2021, Additional history exists Influenza Vaccine (#1) 2024 , 12/06/2022, 11/14/2021, Additional history exists Zoster Vaccines Completed 07/12/2021, 05/06/2021 RSV Immunization Adult Patients Completed 12/20/2022 HIB Vaccines Aged Out No longer eligi ble based on patient's age to complete this topic HPV Vaccines Aged Out No longer eligi ble based on patient's age to complete this topic Hepatitis A Vaccines Aged Out No long er eligible based on patient's age to complete this topic Hepatitis B Vaccines Aged Out No long er eligible based on patient's age to complete this topic IPV Vaccines Aged Out No longer eligi ble based on patient's age to complete this topic MMR Vaccines Aged Out No longer eligi ble based on patient's age to complete this topic Meningococcal ACWY Vaccine Aged Out N o longer eligible based on patient's age to complete this topic Meningococcal B Vaccine Aged Out No l onger eligible based on patient's age to complete this topic RSV Immunization Patients Under 20 months Aged Out No longer eligible based on patient's age to complete this topic Varicella Vaccines Aged Out No longer eligible based on patient's age to complete this topic Insurance [employer] MEDICARE Care Teams Records Tech Relationship Specialty Start Date End Date Arti Serrano PA [address] [place] [address] [phone] PCP - 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
== END 2025-01-23 08:35 | disposition home or self-care (01) ==
LOC: HO.MAMMO 08:34
PROVIDERS: PCP Family Medicine; Visit Provider Family Medicine
DX: N64.89 Other specified disorders of breast (principal)
CPT/HCPCS: 76642; 77061; 77065

== ENCOUNTER → 2025-01-23 09:00 | Outpatient (BNV) | payer MEDICARE, SELFPAY | PROVIDERS: PCP Family Medicine; Visit Provider Internal Medicine | DX: N63.11 Unspecified lump in the right breast, upper outer quadrant (principal) | CPT/HCPCS: 76642; 77065; G0279 ==

== ENCOUNTER 2025-01-30 07:06 | Day surgery (SDC) | payer MEDICARE, SELFPAY ==
--- NOTE | 2025-01-27 10:57 | HO.ANESPROP2 ---
Documented by User: Malu Boateng NP 01/27/25 11:00 HPI - Anesthesia Eval Consult details Narrative: 74yo F for Colonoscopy DNR/Living will per PCP AWV note hx partial colectomy d/t colon ca PMFSH Active Problems Active Problems: All Active Problems CKD (chronic kidney disease) stage 3, GFR 30-59 ml/min (Acute) ACP (advance care planning) (Acute) DNR (do not resuscitate) (Acute) Laboratory exam ordered as part of routine general medical examination (Acute) Right knee pain (Acute) Insomnia (Acute) Rosacea (Acute) Encounter for annual wellness visit (AWV) in Medicare patient (Acute ~11/24/24) Hiatal hernia (Acute) Renal cyst, right (Acute) Atherosclerosis (Acute) Umbilical hernia (Acute) Periumbilical hernia (Acute) Microhematuria (Acute) Incontinence in female (Acute) Difficulty urinating (Acute) Encounter for counseling regarding immunization (Acute) Age related osteoporosis (Acute) Decreased GFR (Acute) Facial lesion (Acute) Serrated polyposis syndrome (Acute) History of colon cancer (Acute) Screening for osteoporosis (Acute) Screening for colon cancer (Acute) Breast cancer screening by mammogram (Acute) Osteoarthritis (arthritis due to wear and tear of joints) (Acute) Hypertension, essential (Acute) Chronic GERD (Acute) Vitamin D deficiency (Acute) High cholesterol (Acute) Past Medical History Medical History Renal cyst, right Atherosclerosis Hiatal hernia Umbilical hernia Periumbilical hernia Microhematuria Rectal prolapse Multiple polyps of sigmoid colon Vitamin D deficiency GERD (gastroesophageal reflux disease) Elevated cholesterol HTN (hypertension) Colon cancer Family History Family history of problems with anesthesia: No Surgical History Surgical History Hx of colonoscopy History of partial colectomy History of surgical amputation of finger of left hand History of partial hysterectomy History of Problems with Anesthesia: No Social History Social History Housing: Condominium Are you a primary children's zoo caretaker to a significant other at home: No Do you presently have visiting nurse or other home services: No Alcohol intake: former Comment: aware of trip hazard Patient Tobacco Use Status: Former Tobacco user Tobacco use type: Cigarette e-Cigarette/Vaping Use: Never Used Use of substances other than those prescribed or required for medical reasons: No Advance Directives: No Advance Directives Information Provided: Yes service: No Current occupational status: retired Cognitive needs: No Hearing needs: No Vision needs: No Meds Allergies Allergy/AdvReac Type Severity Reaction Status Date / Time No Known Allergies Allergy Verified 01/30/25 07:32 Home Medications ?Medication ?Instructions ?Recorded ?Confirmed ?Last Taken ?Type glucosamine sulfate 1,000 mg 1,500 mg PO DAILY 12/24/19 01/30/25 03/01/22 History capsule aspirin 81 mg tablet,delayed 81 mg PO DAILY 11/10/21 01/30/25 01/23/25 History release (Adult Aspirin Regimen) cholecalciferol (vitamin D3) 25 50 mcg PO DAILY 11/06/22 01/30/25 Unknown History mcg (1,000 unit) capsule estradiol 0.01% (0.1 mg/gram) 1 g vaginal 2XW 11/24/24 01/30/25 Unknown History vaginal cream (Estrace) Exam Narrative Narrative: EKG 11/2024 NSR @ 70 Assessment and Plan Assessment Anesthesia Assessment: Chart Reviewed Final Anesthetic Review Family History of Problems with Anesthesia: No History of Problems with Anesthesia: No Documented by User: Talib Arita MD 01/30/25 09:00 [facility] Past Medical History Medical History Renal cyst, right Atherosclerosis Hiatal hernia Umbilical hernia Periumbilical hernia Microhematuria Rectal prolapse Multiple polyps of sigmoid colon Vitamin D deficiency GERD (gastroesophageal reflux disease) Elevated cholesterol HTN (hypertension) Colon cancer Functional capacity: independent ambulation Surgical History Surgical History Hx of colonoscopy History of partial colectomy History of surgical amputation of finger of left hand History of partial hysterectomy Social History Social History Housing: Condominium Are you a primary children's zoo caretaker to a significant other at home: No Do you presently have visiting nurse or other home services: No Alcohol intake: former Comment: aware of trip hazard Patient Tobacco Use Status: Former Tobacco user Tobacco use type: Cigarette e-Cigarette/Vaping Use: Never Used Use of substances other than those prescribed or required for medical reasons: No Advance Directives: No Advance Directives Information Provided: Yes service: No Current occupational status: retired Cognitive needs: No Hearing needs: No Vision needs: No Meds Allergies Allergy/AdvReac Type Severity Reaction Status Date / Time No Known Allergies Allergy Verified 01/30/25 07:32 Home Medications ?Medication ?Instructions ?Recorded ?Confirmed ?Last Taken ?Type glucosamine sulfate 1,000 mg 1,500 mg PO DAILY 12/24/19 01/30/25 03/01/22 History capsule aspirin 81 mg tablet,delayed 81 mg PO DAILY 11/10/21 01/30/25 01/23/25 History release (Adult Aspirin Regimen) cholecalciferol (vitamin D3) 25 50 mcg PO DAILY 11/06/22 01/30/25 Unknown History mcg (1,000 unit) capsule estradiol 0.01% (0.1 mg/gram) 1 g vaginal 2XW 11/24/24 01/30/25 Unknown History vaginal cream (Estrace) Exam Exam Date and Time: 01/30/2025 Airway Mallampati Class: II TM Dist: >3cm Neck ROM: Full Heart: ok Lungs: ok Other: ok Assessment and Plan Assessment Anesthesia Assessment: Anesthesia Plan Discussed Final Anesthetic Review ASA Class: II Final Preanesthetic Review: No Changes in Pt Med Stat, Meds/Allgs Chart Reviewed, Consent Obtained/Reviewed and Anes Risks/Benef Reviewed Patient Risk: Low Procedure Risk: Low
[2025-01-27 12:58] VITALS: BMI 30.7
[2025-01-30 07:15] VITALS: BMI 30.8
[2025-01-30 07:17] VITALS: BP 148/87; PULSE 78; RESP 18; TEMP 36.4; O2SAT 97
[2025-01-30] MEDS: Lactated Ringers 1,000 ML 100 ML IVCONT (07:31)
--- NOTE | 2025-01-30 07:55 | MHC.SHP ---
Pre-Procedural Eval Section A - 24 Hr Update-Section A only Date of Service: 01/30/25 The patient is an INPATIENT: No The patient has been examined within 24 hours of the surgical procedure. The History & Physical has been completed within 30 days and I have reviewed it.: No Section B - Complete if H&P > 30 days Chief Complaint: Surveillance for colon polyps, history of colon ca Relevant Family History (Specify if Yes): No Relevant Social History: Tobacco Use (Former smoker) Present Medications: see Short Stay Collaborative assessment Medical History: Significant History (Colon cancer Elevated cholesterol GERD (gastroesophageal reflux disease) Hiatal hernia HTN (hypertension) Microhematuria Multiple polyps of sigmoid colon Periumbilical hernia Rectal prolapse Renal cyst, right Umbilical hernia Vitamin D deficiency) History of Previous Operations: Relevant previous surgery/procedure and date(s) (History of partial colectomy History of partial hysterectomy History of surgical amputation of finger of left hand Hx of colonoscopy) Allergies: Allergies Allergy/AdvReac Type Severity Reaction Status Date / Time No Known Allergies Allergy Verified 01/30/25 07:32 Review of Systems Sugical H&P ROS: Negative: Constitution, Cardiovascular, Respiratory and Gastrointestinal Exam Surgical H&P Exam: Normal: Heart, Normal: Lungs, Normal: Extremities and Normal: Abdomen Plan Diagnosis/Plan: Change (Proceed with colonoscopy - surveillance for colon polyps) I have reviewed the history and physical and performed a pertinent physical examination on my patient. No changes have occurred unless specified. Time Spent With Patient Time: Total time managing care of this patient today ____ minutes.
[2025-01-30 09:30] VITALS: BP 127/63; PULSE 71; RESP 14; TEMP 36.4; O2SAT 97
--- NOTE | 2025-01-30 09:30 | HO.OPN-COLON ---
Colonoscopy Operative Note Operative Note Date of Service: 01/30/25 Narrative: COLONOSCOPY TILL CECUM WITH BIOPSIES, SNARE POLYPECTOMY, SUBMUCOSAL INJECTION AND HEMOCLIP PLACEMENT Pre-op diagnosis: Surveillance for colon polyps. Patient is status post right hemicolectomy for colon cancer in 2011. Post-op diagnosis:? Colon polyps, Diverticulosis, hemorrhoids Endoscopist:? Petr Alarcon MD Anesthesia:?MAC Consent: Indications for the procedure and potential complications of bleeding, perforation, reaction to medications and missed diagnosis were discussed with the patient and informed consent was obtained. Instrument: Olympus PCF H 190 L variable stiffness pediatric colonoscope Monitoring: Vital signs and clinical assessment, intermittent blood pressure monitoring, continuous EKG monitoring, Pulse oximetry and Carbon Dioxide monitoring were done throughout the procedure. Please see anesthesia flowsheet. Colon withdrawl time was 28 minutes. Procedure: The patient was placed in the left lateral decubitis position and pre-procedure medications were administered. After a digital rectal examination of the ano-rectum, the video colonoscope was inserted into the rectum and advanced through the colon to the Ileo-colic anastomosis in the transverse colon. The colonoscope was slowly withdrawn in a retrograde panoramic fashion and the colon mucosa was carefully examined including a retroflexed view of the rectum. Findings and interventions are described below. Procedure Difficulty: without difficulty Findings: Silverio-terminal Ileum: Normal - biopsies were obtained from the anastomosis Transverse Colon: A 10-12 mm flat polyp at 60 cms. Polyp was raised with 4 cc of Eleview and removed with a hot snare. Polypectomy site was closed with 1 hemoclip Descending Colon: Moderate diverticulosis Sigmoid Colon: A 10 -12 mm sessile polyp at 40 cms - removed with a hot snare. Polypectomy site was closed with 1 hemoclip. A 2-3 mm sessile polyp at 40 cms - removed with a cold biopsy. Three 8-12 mm sessile polyps at 25 cms - removed with a hot snare. Moderate diverticulosis Rectum: Normal Ano-rectum: Small internal hemorrhoids Colon preparation: Good after some irrigation. [place] Bowel Preparation Scale Right colon; 2 Transverse colon: 2 Left colon; 2 (0 = Unprepared colon segment with mucosa not seen due to solid stool that cannot be cleared. 1 = Portion of mucosa of the colon segment seen, but other areas of the colon segment not well seen due to staining, residual stool and/or opaque liquid. 2 = Minor amount of residual staining, small fragments of stool and/or opaque liquid, but mucosa of colon segment seen well. 3 = Entire mucosa of colon segment seen well with no residual staining, small fragments of stool or opaque liquid) Impression and Post Procedure Diagnosis: Colonoscopy Findings: Six small to medium sized polyps were removed Moderate diverticulosis seen in the left colon Small hemorrhoids on retroflexed exam. Plan: I will send a letter with biopsy results. Repeat Colonoscopy in 2-3 years if polyps are adenomatous and due to history of multiple adenomatous polyps. Above findings were reviewed with the patient and relevant handouts were given in the discharge area.
[2025-01-30 09:45] VITALS: BP 143/71; PULSE 68; RESP 14; TEMP 36.3; O2SAT 97
== END 2025-01-30 10:08 | disposition home or self-care (01) ==
PROVIDERS: PCP Family Medicine; Visit Provider Internal Medicine Gastroenterology
PROC: 0DJD8ZZ Inspection of Lower Intestinal Tract, Via Natural or Artificial Opening Endoscopic (ICD-10-PCS; CPT 45378; principal; 2025-01-30 08:30)
DX: Z12.11 Encounter for screening for malignant neoplasm of colon (principal); Z86.0101 Personal history of adenomatous and serrated colon polyps; D13.91 Familial adenomatous polyposis; K64.8 Other hemorrhoids; K57.30 Diverticulosis of large intestine without perforation or abscess without bleeding; D12.3 Benign neoplasm of transverse colon; K63.5 Polyp of colon; D12.5 Benign neoplasm of sigmoid colon
CPT/HCPCS: 45385; 45381; 88305; J2003; J2704; J3010

== ENCOUNTER → 2025-01-30 07:06 | Outpatient (BNV) | payer MEDICARE, SELFPAY | PROVIDERS: PCP Family Medicine; Visit Provider Internal Medicine Gastroenterology | DX: Z12.11 Encounter for screening for malignant neoplasm of colon (principal); K63.5 Polyp of colon; K57.90 Diverticulosis of intestine, part unspecified, without perforation or abscess without bleeding; K64.8 Other hemorrhoids; Z85.00 Personal history of malignant neoplasm of unspecified digestive organ | CPT/HCPCS: 45385 ==